=== PATIENT | male | born 1950 | race Caucasian/White ===

== ENCOUNTER 2018-11-23 14:27 | Inpatient (IN) | payer MEDICARE, MEDICAID ==
[2018-11-23 14:55] LABS: WHITE BLOOD COUNT 26.2 10^3/ul (4.8-10.8)
[2018-11-23 14:55] LABS: ABNORMAL IP MESSAGE 1; HEMATOCRIT 29.8 % (42.0-52.0); HEMOGLOBIN 8.5 g/dl (14.0-18.0); MEAN CORPUSCULAR HEMOGLOBIN 23.9 pg (29.0-33.0); MEAN CORPUSCULAR HGB CONC 28.5 g/dl (32.0-37.0); MEAN CORPUSCULAR VOLUME 83.9 fl (82.0-101.0); MEAN PLATELET VOLUME 9.4 fl (7.4-10.4); PLATELET COUNT 405 10^3/UL (140-415); POSITIVE DIFF @See below; RED BLOOD COUNT 3.55 10^6/ul (4.70-6.10); RED CELL DISTRIBUTION WIDTH 14.4 % (11.5-14.5)
[2018-11-23 14:58] LABS: ADD MAN DIFF? YES; PATH REVIEW? YES-PATH TO CONFIRM
[2018-11-23] MEDS: CEFEPIME 2GM/50 ML (PMX) 50 ML IVPB (15:10)
[2018-11-23] MEDS: SODIUM CHLORIDE 0.9% 1L BAG IV* (15:10)
[2018-11-23 15:16] LABS: ANION GAP 5 (5-13); BLOOD UREA NITROGEN 56 mg/dl (7-20); CALCIUM 9.4 mg/dl (8.4-10.2); CARBON DIOXIDE 27 mmol/L (21-31); CHLORIDE 109 mmol/L (97-110); CREATININE 1.77 mg/dl (0.61-1.24); Estimated GFR 38 mL/min (>60); GLUCOSE 347 mg/dl (70-220); POTASSIUM 5.2 mmol/L (3.5-5.1); SODIUM 141 mmol/L (135-144)
[2018-11-23 15:27] LABS: TROPONIN-I 0.056 ng/ml (0.000-0.120)
[2018-11-23] MEDS: VANCOMYCIN 1 GM (PMX) 250 ML IVPB (15:43)
[2018-11-23 16:21] LABS: ANISOCYTOSIS 1+ (0-0); EOSINOPHILS % (M) 1 % (0-7); LYMPHOCYTES #M 1.3 10^3/ul (0.8-2.9); LYMPHOCYTES % (M) 5 % (15-51); MICROCYTOSIS 1+ (0-0); MONOCYTES % (M) 4 % (0-11); POIKILOCYTOSIS 1+ (0-0); POLYCHROMASIA 1+ (0-0); SEGMENTED NEUTROPHILS (M) % 90 % (39-77); SMUDGE%M 3 % (0-0)
[2018-11-23] MEDS ORDERED: ONDANSETRON 4 MG INJ IV (17:00)
[2018-11-23] MEDS ORDERED: VANCOMYCIN IV PER PHARMACY XX (18:00)
[2018-11-23] MEDS: CHLORHEXIDINE GLUCONATE 15 ML UD CUP MM (18:30)
[2018-11-23 19:57] LABS: LACTIC ACID 2.2 mmol/L (0.5-2.0)
[2018-11-23] MEDS: RIVAROXABAN 15 MG TABLET PO (20:02)
[2018-11-23] MEDS: VANCOMYCIN 1 GM in 250 ML IVPB (21:25)
[2018-11-23 21:49] LABS: LACTIC ACID 1.5 mmol/L (0.5-2.0)
[2018-11-23] MEDS: SUCRALFATE 1 GM TAB PO (23:00)
[2018-11-23] MEDS: PIPER-TAZO 3.375 GM IV (PMX) 100 ML IVPB (23:00)
[2018-11-24] MEDS ORDERED: GLUCAGON 1 MG INJ IM (04:00)
[2018-11-24] MEDS ORDERED: DEXTROSE 50% 50 ML SYRINGE IV ×2 (04:00)
[2018-11-24] MEDS ORDERED: GLUCOSE GEL 15 GRAM TUBE BUCCAL (04:00)
[2018-11-24] MEDS ORDERED: GLUCOSE GEL 15 GRAM TUBE PO ×2 (04:00)
[2018-11-24] MEDS: CHLORHEXIDINE GLUCONATE 15 ML UD CUP MM ×2 (06:05→18:48)
[2018-11-24] MEDS: PIPER-TAZO 3.375 GM IV (PMX) 100 ML IVPB ×3 (06:05→21:11)
[2018-11-24] MEDS: ACETAMINOPHEN 325 MG TAB PO (06:06)
[2018-11-24] MEDS: PANTOPRAZOLE (EC) 40 MG TAB PO (06:43)
[2018-11-24] MEDS: SUCRALFATE 1 GM TAB PO ×4 (06:43→21:00)
[2018-11-24] MEDS: morphine 2 MG INJ IV (06:43)
[2018-11-24] MEDS: INSULIN ASPART [NOVOLOG] 3 ML PEN SC ×4 (07:55→21:06)
[2018-11-24 08:42] LABS: ADD MAN DIFF? NO
[2018-11-24 08:46] LABS: BASOPHIL # 0.1 10^3/ul (0.0-0.1); BASOPHILS % 0.2 % (0.0-2.0); EOSINOPHILS # 0.2 10^3/ul (0.0-0.5); EOSINOPHILS % 1.1 % (0.0-7.0); MEAN CORPUSCULAR HEMOGLOBIN 24.3 pg (29.0-33.0); MEAN CORPUSCULAR HGB CONC 29.2 g/dl (32.0-37.0); MEAN CORPUSCULAR VOLUME 83.3 fl (82.0-101.0); MEAN PLATELET VOLUME 9.6 fl (7.4-10.4); MONOCYTE # 1.2 10^3/ul (0.3-0.9); NEUTROPHIL # 17.2 10^3/ul (1.6-7.5); NEUTROPHILS % 86.2 % (39.0-77.0); PLATELET COUNT 302 10^3/UL (140-415); RED BLOOD COUNT 2.88 10^6/ul (4.70-6.10); RED CELL DISTRIBUTION WIDTH 14.4 % (11.5-14.5)
[2018-11-24] MEDS: POLYETHYLENE GLYCOL 17 GM PACKET PO (09:00)
[2018-11-24] MEDS: ASCORBIC ACID 500 MG TAB PO (09:00)
[2018-11-24 09:32] LABS: ANION GAP 3 (5-13); BLOOD UREA NITROGEN 47 mg/dl (7-20); CALCIUM 8.5 mg/dl (8.4-10.2); CARBON DIOXIDE 24 mmol/L (21-31); CHLORIDE 112 mmol/L (97-110); CREATININE 1.85 mg/dl (0.61-1.24); Estimated GFR 36 mL/min (>60); GLUCOSE 81 mg/dl (70-220); POTASSIUM 4.2 mmol/L (3.5-5.1); SODIUM 139 mmol/L (135-144)
[2018-11-24] MEDS: DIGOXIN 0.25 MG TAB PO (12:49)
[2018-11-24 14:20] LABS: INR 1.35; PROTIME 16.8 Sec (11.9-14.9); PT RATIO 1.3
[2018-11-24 14:21] LABS: PARTIAL THROMBOPLASTIN TIME 31.5 Sec (23.0-35.0)
[2018-11-24 14:25] LABS: THROMBIN TIME 17.8 SEC (13.8-19.1)
[2018-11-24 14:30] LABS: PLATELET COUNT 302 10^3/UL (140-415)
[2018-11-24] MEDS: LORAZEPAM 2 MG INJ IV (15:23)
[2018-11-24] MEDS: VANCOMYCIN 1 GM 250 ML IVPB (21:52)
[2018-11-25] MEDS ORDERED: ACCU-CHEK XX (02:00)
[2018-11-25] MEDS: CHLORHEXIDINE GLUCONATE 15 ML UD CUP MM ×2 (05:29→18:31)
[2018-11-25] MEDS: PIPER-TAZO 3.375 GM IV (PMX) 100 ML IVPB ×3 (05:29→22:04)
[2018-11-25] MEDS: SUCRALFATE 1 GM TAB PO ×4 (06:24→21:39)
[2018-11-25] MEDS: PANTOPRAZOLE (EC) 40 MG TAB PO (06:24)
[2018-11-25 06:48] LABS: ADD MAN DIFF? NO
[2018-11-25 06:52] LABS: WHITE BLOOD COUNT 21.2 10^3/ul (4.8-10.8)
[2018-11-25 06:52] LABS: BASOPHIL # 0.1 10^3/ul (0.0-0.1); BASOPHILS % 0.3 % (0.0-2.0); EOSINOPHILS # 0.4 10^3/ul (0.0-0.5); EOSINOPHILS % 1.7 % (0.0-7.0); HEMATOCRIT 24.3 % (42.0-52.0); HEMOGLOBIN 7.1 g/dl (14.0-18.0); LYMPHOCYTES # 1.1 10^3/ul (0.8-2.9); MEAN CORPUSCULAR HEMOGLOBIN 24.1 pg (29.0-33.0); MEAN CORPUSCULAR HGB CONC 29.2 g/dl (32.0-37.0); MEAN CORPUSCULAR VOLUME 82.4 fl (82.0-101.0); MEAN PLATELET VOLUME 9.5 fl (7.4-10.4); MONOCYTE # 1.4 10^3/ul (0.3-0.9); MONOCYTES % 6.7 % (0.0-11.0); NEUTROPHIL # 18.1 10^3/ul (1.6-7.5); NEUTROPHILS % 85.1 % (39.0-77.0); PLATELET COUNT 298 10^3/UL (140-415); RED BLOOD COUNT 2.95 10^6/ul (4.70-6.10); RED CELL DISTRIBUTION WIDTH 14.5 % (11.5-14.5)
[2018-11-25 07:17] LABS: ANION GAP 5 (5-13); BLOOD UREA NITROGEN 45 mg/dl (7-20); CALCIUM 8.6 mg/dl (8.4-10.2); CARBON DIOXIDE 25 mmol/L (21-31); CHLORIDE 106 mmol/L (97-110); CREATININE 2.13 mg/dl (0.61-1.24); Estimated GFR 31 mL/min (>60); GLUCOSE 159 mg/dl (70-220); POTASSIUM 4.3 mmol/L (3.5-5.1); SODIUM 136 mmol/L (135-144)
[2018-11-25 07:23] LABS: TOTAL IRON BINDING CAPACITY 182 ug/dl (241-421)
[2018-11-25 07:24] LABS: IRON < 10 ug/dl (35-150)
[2018-11-25] MEDS: INSULIN ASPART [NOVOLOG] 3 ML PEN SC ×5 (07:55→22:05)
[2018-11-25] MEDS: ASCORBIC ACID 500 MG TAB PO (09:00)
[2018-11-25] MEDS: POLYETHYLENE GLYCOL 17 GM PACKET PO (09:00)
[2018-11-25] MEDS: morphine 2 MG INJ IV (11:10)
[2018-11-25] MEDS: PROPOFOL 200 MG INJ IV ×2 (13:29→14:15)
[2018-11-25] MEDS ORDERED: VANCOMYCIN IV PER PHARMACY XX (14:00)
[2018-11-25] MEDS: DIGOXIN 0.25 MG TAB PO (14:39)
[2018-11-25 21:36] LABS: VANCOMYCIN,TROUGH 13.4 ug/ml (10.0-20.0)
[2018-11-25] MEDS: VANCOMYCIN 1 GM 250 ML IVPB (21:58)
[2018-11-26] MEDS: LORAZEPAM 1 MG TAB PO ×2 (00:28→22:57)
[2018-11-26] MEDS: CHLORHEXIDINE GLUCONATE 15 ML UD CUP MM ×2 (06:05→18:05)
[2018-11-26] MEDS: PIPER-TAZO 3.375 GM IV (PMX) 100 ML IVPB ×3 (06:06→21:10)
[2018-11-26] MEDS: SUCRALFATE 1 GM TAB PO ×4 (07:25→20:24)
[2018-11-26] MEDS: PANTOPRAZOLE (EC) 40 MG TAB PO (07:25)
[2018-11-26] MEDS: INSULIN ASPART [NOVOLOG] 3 ML PEN SC ×7 (08:34→20:41)
[2018-11-26] MEDS: POLYETHYLENE GLYCOL 17 GM PACKET PO (09:00)
[2018-11-26] MEDS: ASCORBIC ACID 500 MG TAB PO (09:00)
[2018-11-26 09:09] LABS: ANION GAP 4 (5-13); BLOOD UREA NITROGEN 45 mg/dl (7-20); CALCIUM 8.4 mg/dl (8.4-10.2); CARBON DIOXIDE 24 mmol/L (21-31); CHLORIDE 108 mmol/L (97-110); CREATININE 2.35 mg/dl (0.61-1.24); Estimated GFR 28 mL/min (>60); GLUCOSE 210 mg/dl (70-220); POTASSIUM 4.4 mmol/L (3.5-5.1); SODIUM 136 mmol/L (135-144)
[2018-11-26 09:16] LABS: IRON 12 ug/dl (35-150)
[2018-11-26 09:25] LABS: % IRON SATURATION 7 % SAT (22-52); TOTAL IRON BINDING CAPACITY 170 ug/dl (241-421)
[2018-11-26] MEDS: DIGOXIN 0.25 MG TAB PO (12:28)
[2018-11-26] MEDS: ACETYLCYSTEINE 20% 4 ML VIAL NEB ×3 (16:00→21:05)
[2018-11-26] MEDS: ALBUTEROL/IPRATROPIUM (NEB) 3 ML AMP HHN ×2 (17:24→21:05)
[2018-11-26] MEDS: INSULIN GLARGINE [LANTus] (100 UNITS/ML) SYG SC (20:37)
[2018-11-27] MEDS: ALBUTEROL 0.083% (NEB) 2.5 MG/3 ML AMP NEB ×2 (01:08→05:07)
[2018-11-27] MEDS: ACETYLCYSTEINE 20% 4 ML VIAL NEB ×6 (01:08→21:05)
[2018-11-27] MEDS: INSULIN ASPART [NOVOLOG] 3 ML PEN SC ×8 (01:31→20:37)
[2018-11-27] MEDS: SUCRALFATE 1 GM TAB PO ×4 (06:32→20:21)
[2018-11-27] MEDS: PANTOPRAZOLE (EC) 40 MG TAB PO (06:32)
[2018-11-27] MEDS: CHLORHEXIDINE GLUCONATE 15 ML UD CUP MM ×2 (06:32→18:06)
[2018-11-27] MEDS: PIPER-TAZO 3.375 GM IV (PMX) 100 ML IVPB ×3 (06:33→21:03)
[2018-11-27 07:37] LABS: BLOOD UREA NITROGEN 43 mg/dl (7-20)
[2018-11-27 07:37] LABS: CREATININE 2.19 mg/dl (0.61-1.24)
[2018-11-27 07:40] LABS: VANCOMYCIN,RANDOM 13.5 ug/ml
[2018-11-27] MEDS: ALBUTEROL/IPRATROPIUM (NEB) 3 ML AMP HHN ×4 (08:11→21:05)
[2018-11-27] MEDS: ASCORBIC ACID 500 MG TAB PO (08:37)
[2018-11-27] MEDS: POLYETHYLENE GLYCOL 17 GM PACKET PO (08:38)
[2018-11-27] MEDS: VANCOMYCIN 1 GM 250 ML IVPB (12:09)
[2018-11-27] MEDS: DIGOXIN 0.25 MG TAB PO (14:58)
[2018-11-27] MEDS: INSULIN GLARGINE [LANTus] (100 UNITS/ML) SYG SC (20:37)
[2018-11-27] MEDS: ACETAMINOPHEN 325 MG TAB PO (21:03)
[2018-11-27] MEDS: LORAZEPAM 1 MG TAB PO (23:17)
[2018-11-28] MEDS: ALBUTEROL 0.083% (NEB) 2.5 MG/3 ML AMP NEB ×2 (01:30→05:25)
[2018-11-28] MEDS: ACETYLCYSTEINE 20% 4 ML VIAL NEB ×6 (01:30→19:48)
[2018-11-28 04:43] LABS: OCCULT BLOOD STOOL NEGATIVE (NEGATIVE)
[2018-11-28 06:09] LABS: ADD MAN DIFF? NO
[2018-11-28 06:15] LABS: ABNORMAL IP MESSAGE 1; BASOPHIL # 0.1 10^3/ul (0.0-0.1); BASOPHILS % 0.3 % (0.0-2.0); EOSINOPHILS # 0.4 10^3/ul (0.0-0.5); HEMATOCRIT 24.7 % (42.0-52.0); HEMOGLOBIN 7.4 g/dl (14.0-18.0); LYMPHOCYTES # 1.5 10^3/ul (0.8-2.9); LYMPHOCYTES % 7.7 % (15.0-51.0); MEAN CORPUSCULAR HEMOGLOBIN 23.8 pg (29.0-33.0); MEAN CORPUSCULAR VOLUME 79.4 fl (82.0-101.0); MEAN PLATELET VOLUME 9.7 fl (7.4-10.4); MONOCYTE # 1.6 10^3/ul (0.3-0.9); MONOCYTES % 8.6 % (0.0-11.0); NEUTROPHIL # 15.3 10^3/ul (1.6-7.5); NEUTROPHILS % 80.1 % (39.0-77.0); PLATELET COUNT 276 10^3/UL (140-415); POSITIVE DIFF @See below; RED BLOOD COUNT 3.11 10^6/ul (4.70-6.10); RED CELL DISTRIBUTION WIDTH 14.6 % (11.5-14.5)
[2018-11-28 06:15] LABS: WHITE BLOOD COUNT 19.1 10^3/ul (4.8-10.8)
[2018-11-28] MEDS: PIPER-TAZO 3.375 GM IV (PMX) 100 ML IVPB ×3 (06:20→21:49)
[2018-11-28] MEDS: CHLORHEXIDINE GLUCONATE 15 ML UD CUP MM ×2 (06:20→17:53)
[2018-11-28] MEDS: SUCRALFATE 1 GM TAB PO ×4 (06:20→20:51)
[2018-11-28] MEDS: PANTOPRAZOLE (EC) 40 MG TAB PO (06:20)
[2018-11-28 07:00] LABS: ANION GAP 6 (5-13); BLOOD UREA NITROGEN 40 mg/dl (7-20); CALCIUM 8.6 mg/dl (8.4-10.2); CARBON DIOXIDE 22 mmol/L (21-31); CHLORIDE 108 mmol/L (97-110); CREATININE 2.25 mg/dl (0.61-1.24); Estimated GFR 29 mL/min (>60); GLUCOSE 178 mg/dl (70-220); POTASSIUM 4.6 mmol/L (3.5-5.1); SODIUM 136 mmol/L (135-144)
[2018-11-28] MEDS: INSULIN ASPART [NOVOLOG] 3 ML PEN SC ×7 (08:04→21:10)
[2018-11-28] MEDS: ASCORBIC ACID 500 MG TAB PO (08:48)
[2018-11-28] MEDS: POLYETHYLENE GLYCOL 17 GM PACKET PO (08:48)
[2018-11-28] MEDS: ALBUTEROL/IPRATROPIUM (NEB) 3 ML AMP HHN ×4 (09:51→19:48)
[2018-11-28] MEDS: DIGOXIN 0.25 MG TAB PO (13:15)
[2018-11-28] MEDS: INSULIN GLARGINE [LANTus] (100 UNITS/ML) SYG SC (21:11)
[2018-11-29] MEDS: ACETYLCYSTEINE 20% 4 ML VIAL NEB ×6 (01:03→20:00)
[2018-11-29] MEDS: VANCOMYCIN 1 GM 250 ML IVPB (02:01)
[2018-11-29] MEDS: PIPER-TAZO 3.375 GM IV (PMX) 100 ML IVPB ×3 (06:00→22:50)
[2018-11-29] MEDS: CHLORHEXIDINE GLUCONATE 15 ML UD CUP MM ×2 (06:00→18:21)
[2018-11-29 06:55] LABS: ADD MAN DIFF? NO
[2018-11-29 07:03] LABS: ABNORMAL IP MESSAGE 1; BASOPHIL # 0.1 10^3/ul (0.0-0.1); BASOPHILS % 0.3 % (0.0-2.0); EOSINOPHILS # 0.3 10^3/ul (0.0-0.5); EOSINOPHILS % 1.3 % (0.0-7.0); HEMATOCRIT 23.9 % (42.0-52.0); LYMPHOCYTES % 4.9 % (15.0-51.0); MEAN CORPUSCULAR HEMOGLOBIN 23.7 pg (29.0-33.0); MEAN CORPUSCULAR HGB CONC 29.3 g/dl (32.0-37.0); MEAN PLATELET VOLUME 9.3 fl (7.4-10.4); MONOCYTE # 1.6 10^3/ul (0.3-0.9); MONOCYTES % 8.1 % (0.0-11.0); NEUTROPHIL # 16.1 10^3/ul (1.6-7.5); NEUTROPHILS % 83.6 % (39.0-77.0); PLATELET COUNT 280 10^3/UL (140-415); POSITIVE DIFF @See below; RED BLOOD COUNT 2.95 10^6/ul (4.70-6.10); RED CELL DISTRIBUTION WIDTH 14.4 % (11.5-14.5)
[2018-11-29 07:03] LABS: WHITE BLOOD COUNT 19.3 10^3/ul (4.8-10.8)
[2018-11-29 07:46] LABS: ANION GAP 5 (5-13); BLOOD UREA NITROGEN 34 mg/dl (7-20); CALCIUM 8.6 mg/dl (8.4-10.2); CARBON DIOXIDE 22 mmol/L (21-31); CHLORIDE 110 mmol/L (97-110); CREATININE 2.18 mg/dl (0.61-1.24); Estimated GFR 30 mL/min (>60); GLUCOSE 213 mg/dl (70-220); POTASSIUM 4.3 mmol/L (3.5-5.1); SODIUM 137 mmol/L (135-144)
[2018-11-29] MEDS: PANTOPRAZOLE (EC) 40 MG TAB PO (07:49)
[2018-11-29] MEDS: SUCRALFATE 1 GM TAB PO ×4 (07:49→22:40)
[2018-11-29] MEDS: INSULIN ASPART [NOVOLOG] 3 ML PEN SC ×7 (08:05→22:47)
[2018-11-29] MEDS: ALBUTEROL/IPRATROPIUM (NEB) 3 ML AMP HHN ×4 (08:56→20:00)
[2018-11-29] MEDS: POLYETHYLENE GLYCOL 17 GM PACKET PO (09:23)
[2018-11-29] MEDS: ASCORBIC ACID 500 MG TAB PO (09:23)
[2018-11-29] MEDS: DIGOXIN 0.25 MG TAB PO (13:24)
[2018-11-29 16:13] LABS: FLD PMN% 77.4 %; FLD RBC 54000 /uL; FLD WBC 37248 /cmm
[2018-11-29 17:13] LABS: FLUID LD 28007 U/L; FLUID TOTAL PROTEIN 3.1 g/dl
[2018-11-29 17:28] LABS: FLD MN% 22.6 %
[2018-11-29 17:30] LABS: FLD CLARITY CLOUDY; FLD COLOR YELLOW; FLD VOLUME 3.6 ml
[2018-11-29 17:30] LABS: FLD TYPE THORACENTESIS
[2018-11-29 17:58] LABS: FLUID TYPE THORACENTESIS FLUID
[2018-11-29] MEDS: INSULIN GLARGINE [LANTus] (100 UNITS/ML) SYG SC (22:48)
[2018-11-30] MEDS: ALBUTEROL 0.083% (NEB) 2.5 MG/3 ML AMP NEB ×2 (01:52→05:20)
[2018-11-30] MEDS: ACETYLCYSTEINE 20% 4 ML VIAL NEB ×6 (01:52→20:13)
[2018-11-30] MEDS: PIPER-TAZO 3.375 GM IV (PMX) 100 ML IVPB ×3 (06:12→20:08)
[2018-11-30] MEDS: CHLORHEXIDINE GLUCONATE 15 ML UD CUP MM ×2 (06:12→18:24)
[2018-11-30] MEDS: SUCRALFATE 1 GM TAB PO ×4 (07:25→20:08)
[2018-11-30] MEDS: PANTOPRAZOLE (EC) 40 MG TAB PO (07:25)
[2018-11-30] MEDS: INSULIN ASPART [NOVOLOG] 3 ML PEN SC ×7 (07:36→20:08)
[2018-11-30] MEDS: ALBUTEROL/IPRATROPIUM (NEB) 3 ML AMP HHN ×4 (08:18→20:12)
[2018-11-30 08:19] LABS: AADO2 Arterial 153.7 mmHg (7.0-24.0); Allen Test ACCEPTAB; Arterial Base Excess -0.8 mmol/L (-3.0-3); Arterial Blood Gas Oxygen Sat 96.6 mmHG (95.0-98.0); Arterial COHb 0.2 % (0.0-3.0); Arterial Fraction of Oxyhgb 96.1 % (93.0-99.0); Arterial HCO3 24.1 mmol/L (22.0-26.0); Arterial MetHb 0.3 % (0.0-1.5); MODE VENT - AC; Site Right Radial
[2018-11-30] MEDS: POLYETHYLENE GLYCOL 17 GM PACKET PO (09:00)
[2018-11-30] MEDS: ASCORBIC ACID 500 MG TAB PO (09:00)
[2018-11-30] MEDS: PROPOFOL 200 MG INJ IV (11:00)
[2018-11-30] MEDS ORDERED: PROPOFOL 100 ML IV ×2 (11:00)
[2018-11-30] MEDS: VANCOMYCIN 1 GM 250 ML IVPB (13:34)
[2018-11-30] MEDS: DIGOXIN 0.25 MG TAB PO (13:38)
[2018-11-30] MEDS: INSULIN GLARGINE [LANTus] (100 UNITS/ML) SYG SC (20:09)
[2018-12-01] MEDS: ACETYLCYSTEINE 20% 4 ML VIAL NEB ×2 (01:17→05:05)
[2018-12-01] MEDS: ALBUTEROL/IPRATROPIUM (NEB) 3 ML AMP HHN ×6 (01:18→21:59)
[2018-12-01] MEDS: PIPER-TAZO 3.375 GM IV (PMX) 100 ML IVPB ×3 (05:38→21:21)
[2018-12-01] MEDS: CHLORHEXIDINE GLUCONATE 15 ML UD CUP MM ×2 (05:38→17:56)
[2018-12-01] MEDS: LORAZEPAM 1 MG TAB PO (05:38)
[2018-12-01] MEDS: INSULIN ASPART [NOVOLOG] 3 ML PEN SC ×7 (07:55→20:15)
[2018-12-01] MEDS: POLYETHYLENE GLYCOL 17 GM PACKET PO (08:12)
[2018-12-01] MEDS: ASCORBIC ACID 500 MG TAB PO (08:13)
[2018-12-01] MEDS: SUCRALFATE 1 GM TAB PO ×4 (08:13→20:15)
[2018-12-01] MEDS: PANTOPRAZOLE (EC) 40 MG TAB PO (08:13)
[2018-12-01 09:33] LABS: BLOOD UREA NITROGEN 31 mg/dl (7-20)
[2018-12-01 09:33] LABS: CREATININE 2.23 mg/dl (0.61-1.24)
[2018-12-01] MEDS: ACETAMINOPHEN 325 MG TAB PO ×3 (09:41→22:16)
[2018-12-01] MEDS: DIGOXIN 0.25 MG TAB PO (12:17)
[2018-12-01] MEDS: INSULIN GLARGINE [LANTus] (100 UNITS/ML) SYG SC (20:55)
[2018-12-02] MEDS: VANCOMYCIN 1 GM 250 ML IVPB (01:23)
[2018-12-02] MEDS: PIPER-TAZO 3.375 GM IV (PMX) 100 ML IVPB ×3 (06:05→22:26)
[2018-12-02] MEDS: CHLORHEXIDINE GLUCONATE 15 ML UD CUP MM ×2 (06:06→18:09)
[2018-12-02] MEDS: SUCRALFATE 1 GM TAB PO ×4 (07:49→20:28)
[2018-12-02] MEDS: ACETAMINOPHEN 325 MG TAB PO ×2 (07:49→12:10)
[2018-12-02] MEDS: PANTOPRAZOLE (EC) 40 MG TAB PO (07:49)
[2018-12-02] MEDS: INSULIN ASPART [NOVOLOG] 3 ML PEN SC ×7 (07:49→20:28)
[2018-12-02] MEDS: ASCORBIC ACID 500 MG TAB PO (08:08)
[2018-12-02] MEDS: POLYETHYLENE GLYCOL 17 GM PACKET PO (08:08)
[2018-12-02] MEDS: ALBUTEROL/IPRATROPIUM (NEB) 3 ML AMP HHN ×4 (08:54→21:08)
[2018-12-02] MEDS: DIGOXIN 0.25 MG TAB PO (12:10)
[2018-12-02] MEDS: INSULIN GLARGINE [LANTus] (100 UNITS/ML) SYG SC (20:30)
== END 2018-12-03 00:08 | DRG 207 ==
LOC: TEL 16:47 → E/R 14:27
PROVIDERS: Internal Medicine
PROC: 5A1955Z Respiratory Ventilation, Greater than 96 Consecutive Hours (ICD-10-PCS; 2018-11-23)
PROC: 0BC38ZZ Extirpation of Matter from Right Main Bronchus, Via Natural or Artificial Opening Endoscopic (ICD-10-PCS; principal; 2018-11-25)
PROC: 0W993ZZ Drainage of Right Pleural Cavity, Percutaneous Approach (ICD-10-PCS; 2018-11-29)
PROC: 0BJ08ZZ Inspection of Tracheobronchial Tree, Via Natural or Artificial Opening Endoscopic (ICD-10-PCS; 2018-11-30)
DX: T17.590A Other foreign object in bronchus causing asphyxiation, initial encounter (principal); J18.9 Pneumonia, unspecified organism; I13.0 Hypertensive heart and chronic kidney disease with heart failure and stage 1 through stage 4 chronic kidney disease, or unspecified chronic kidney disease; I50.32 Chronic diastolic (congestive) heart failure; I42.7 Cardiomyopathy due to drug and external agent; J96.11 Chronic respiratory failure with hypoxia; J98.11 Atelectasis; Z99.11 Dependence on respirator [ventilator] status; D63.1 Anemia in chronic kidney disease; E11.22 Type 2 diabetes mellitus with diabetic chronic kidney disease; E66.01 Morbid (severe) obesity due to excess calories; N18.3 Chronic kidney disease, stage 3 (moderate); I48.91 Unspecified atrial fibrillation; N48.9 Disorder of penis, unspecified; R13.10 Dysphagia, unspecified; X58.XXXA Exposure to other specified factors, initial encounter; Z93.0 Tracheostomy status; Z93.1 Gastrostomy status; Z87.891 Personal history of nicotine dependence; Z79.4 Long term (current) use of insulin; Z79.01 Long term (current) use of anticoagulants; Z68.33 Body mass index [BMI] 33.0-33.9, adult
CPT/HCPCS: 36415; 36600; 71045; 71250; 76604; 76942; 80048; 80202; 82270; 82565; 82728; 82803; 82962; 83540; 83605; 83615; 84157; 84484; 84520; 85025; 85049; 85610; 85670; 85730; 87040-91; 87081; 87400; 88104; 88107; 88305; 89051; 93005; 94002; 94003; 94640; 94667; 94668; 94799; 96374; 96375; 99291-25

== ENCOUNTER 2018-12-08 22:00 | Inpatient (IN) | payer MEDICARE, MEDICAID ==
[2018-12-08] MEDS: SOD CHLORIDE 0.9% 1,000 ML IV
[2018-12-08] MEDS ORDERED: GLUCAGON 1 MG INJ IM (23:45)
[2018-12-08] MEDS ORDERED: GLUCOSE GEL 15 GRAM TUBE BUCCAL (23:45)
[2018-12-08] MEDS ORDERED: GLUCOSE GEL 15 GRAM TUBE PO ×2 (23:45)
[2018-12-08] MEDS ORDERED: DEXTROSE 50% 50 ML SYRINGE IV ×2 (23:45)
[2018-12-09] MEDS ORDERED: LORAZEPAM 1 MG TAB PO
[2018-12-09] MEDS ORDERED: ALBUTEROL 0.083% (NEB) 2.5 MG/3 ML AMP NEB
[2018-12-09] MEDS ORDERED: DOCUSATE SODIUM 100 MG CAP PO
[2018-12-09] MEDS ORDERED: NITROGLYCERIN (SL) 0.4 MG TAB SL
[2018-12-09] MEDS ORDERED: BISACODYL (EC) 5 MG TAB PO
[2018-12-09] MEDS ORDERED: NACL 0.9% 3 ML SYG IV
[2018-12-09] MEDS: INSULIN ASPART [NOVOLOG] 3 ML PEN SC ×7 (01:00→21:00)
[2018-12-09 01:22] LABS: ADD MAN DIFF? NO
[2018-12-09 01:26] LABS: WHITE BLOOD COUNT 18.5 10^3/ul (4.8-10.8)
[2018-12-09 01:26] LABS: ABNORMAL IP MESSAGE 1; BASOPHIL # 0.1 10^3/ul (0.0-0.1); BASOPHILS % 0.4 % (0.0-2.0); EOSINOPHILS # 0.2 10^3/ul (0.0-0.5); EOSINOPHILS % 1.2 % (0.0-7.0); HEMATOCRIT 24.1 % (42.0-52.0); HEMOGLOBIN 7.3 g/dl (14.0-18.0); LYMPHOCYTES % 5.4 % (15.0-51.0); MEAN CORPUSCULAR HEMOGLOBIN 24.6 pg (29.0-33.0); MEAN CORPUSCULAR HGB CONC 30.3 g/dl (32.0-37.0); MEAN CORPUSCULAR VOLUME 81.1 fl (82.0-101.0); MEAN PLATELET VOLUME 9.3 fl (7.4-10.4); MONOCYTE # 1.5 10^3/ul (0.3-0.9); MONOCYTES % 8.3 % (0.0-11.0); NEUTROPHIL # 15.4 10^3/ul (1.6-7.5); NEUTROPHILS % 83.2 % (39.0-77.0); PLATELET COUNT 306 10^3/UL (140-415); POSITIVE DIFF @See below; RED BLOOD COUNT 2.97 10^6/ul (4.70-6.10); RED CELL DISTRIBUTION WIDTH 15.9 % (11.5-14.5)
[2018-12-09 01:44] LABS: ALANINE AMINOTRANSFERASE 10 IU/L (13-69); ALBUMIN 2.3 g/dl (3.3-4.9); ALKALINE PHOSPHATASE 218 IU/L (42-121); ANION GAP 6 (5-13); ASPARTATE AMINO TRANSFERASE 19 IU/L (15-46); BILIRUBIN,INDIRECT 0.1 mg/dl (0-1.1); BILIRUBIN,TOTAL 0.1 mg/dl (0.2-1.3); BLOOD UREA NITROGEN 28 mg/dl (7-20); CALCIUM 8.4 mg/dl (8.4-10.2); CARBON DIOXIDE 24 mmol/L (21-31); CHLORIDE 104 mmol/L (97-110); CREATININE 2.27 mg/dl (0.61-1.24); Estimated GFR 29 mL/min (>60); GLUCOSE 137 mg/dl (70-220); POTASSIUM 4.9 mmol/L (3.5-5.1); SODIUM 134 mmol/L (135-144); TOTAL PROTEIN 6.1 g/dl (6.1-8.1)
[2018-12-09 01:44] LABS: HEMOGLOBIN A1C 8.6 % (0-5.9)
[2018-12-09] MEDS: ACCU-CHEK XX (02:38)
[2018-12-09] MEDS: ONDANSETRON 4 MG INJ IV (03:48)
[2018-12-09] MEDS ORDERED: morphine 2 MG INJ IV (04:30)
[2018-12-09] MEDS: morphine 2 MG INJ IV (04:35)
[2018-12-09] MEDS: SUCRALFATE 1 GM TAB PO ×4 (07:25→22:28)
[2018-12-09 08:28] LABS: ADD MAN DIFF? NO; HAAIG REFLEX REFLEX FILED
[2018-12-09 08:33] LABS: ABNORMAL IP MESSAGE 1; BASOPHIL # 0.1 10^3/ul (0.0-0.1); BASOPHILS % 0.3 % (0.0-2.0); EOSINOPHILS # 0.2 10^3/ul (0.0-0.5); EOSINOPHILS % 1.2 % (0.0-7.0); HEMATOCRIT 25.1 % (42.0-52.0); HEMOGLOBIN 7.6 g/dl (14.0-18.0); LYMPHOCYTES # 1.4 10^3/ul (0.8-2.9); LYMPHOCYTES % 7.4 % (15.0-51.0); MEAN CORPUSCULAR HEMOGLOBIN 24.6 pg (29.0-33.0); MEAN CORPUSCULAR HGB CONC 30.3 g/dl (32.0-37.0); MEAN CORPUSCULAR VOLUME 81.2 fl (82.0-101.0); MEAN PLATELET VOLUME 9.3 fl (7.4-10.4); MONOCYTE # 1.7 10^3/ul (0.3-0.9); MONOCYTES % 8.5 % (0.0-11.0); NEUTROPHIL # 15.9 10^3/ul (1.6-7.5); NEUTROPHILS % 81.3 % (39.0-77.0); PLATELET COUNT 318 10^3/UL (140-415); POSITIVE DIFF @See below; RED BLOOD COUNT 3.09 10^6/ul (4.70-6.10); RED CELL DISTRIBUTION WIDTH 16.2 % (11.5-14.5)
[2018-12-09 08:33] LABS: WHITE BLOOD COUNT 19.5 10^3/ul (4.8-10.8)
[2018-12-09] MEDS: AMLODIPINE 5 MG TAB PO (08:41)
[2018-12-09] MEDS: FUROSEMIDE 40 MG INJ IV (08:42)
[2018-12-09] MEDS: DIGOXIN 0.25 MG TAB PO (08:42)
[2018-12-09] MEDS ORDERED: NON-FORMULARY/PATIENT OWN MED (Cranberry Fruit (Cranberry) 450 MG) PO (09:00)
[2018-12-09] MEDS ORDERED: NON-FORMULARY/PATIENT OWN MED (Multivitamin with Minerals (Multivitamins with Minerals) 1 PO (09:00)
[2018-12-09 09:02] LABS: ALANINE AMINOTRANSFERASE 9 IU/L (13-69); ALBUMIN 2.3 g/dl (3.3-4.9); ALBUMIN/GLOBULIN RATIO 0.58; ALKALINE PHOSPHATASE 233 IU/L (42-121); ANION GAP 5 (5-13); ASPARTATE AMINO TRANSFERASE 19 IU/L (15-46); BLOOD UREA NITROGEN 26 mg/dl (7-20); CALCIUM 8.8 mg/dl (8.4-10.2); CARBON DIOXIDE 24 mmol/L (21-31); CHLORIDE 108 mmol/L (97-110); CREATININE 2.26 mg/dl (0.61-1.24); Estimated GFR 29 mL/min (>60); GLUCOSE 99 mg/dl (70-220); MAGNESIUM 2.1 mg/dl (1.7-2.5); POTASSIUM 4.9 mmol/L (3.5-5.1); SODIUM 137 mmol/L (135-144); TOTAL PROTEIN 6.2 g/dl (6.1-8.1)
[2018-12-09 09:27] LABS: HEPATITIS B SURFACE ANTIGEN NEGATIVE (NEGATIVE)
[2018-12-09 09:43] LABS: HEPATITIS B SURFACE ANTIBODY NEGATIVE (NEGATIVE)
[2018-12-09 09:44] LABS: HEPATITIS B CORE ANTIBODY NEGATIVE (NEGATIVE); HEPATITIS C VIRAL ANTIBODY NEGATIVE (NEGATIVE)
[2018-12-09] MEDS: FERROUS SULFATE (EC) 325 MG TAB PO (11:10)
[2018-12-09] MEDS: PANTOPRAZOLE (EC) 40 MG TAB PO (11:10)
[2018-12-09] MEDS: MULTIVITAMINS/MINERALS TAB PO (11:11)
[2018-12-09] MEDS: ASCORBIC ACID 500 MG TAB PO (11:12)
[2018-12-09] MEDS ORDERED: AMIKACIN IV PER PHARMACY XX (11:30)
[2018-12-09 12:37] LABS: B-TYPE NATRIURETIC PEPTIDE 4150 PG/ML (0-125)
[2018-12-09] MEDS: SOD CHLORIDE 0.9% 1,000 ML IV (13:30)
[2018-12-09] MEDS: CHLORHEXIDINE GLUCONATE 15 ML UD CUP MM ×2 (13:33)
[2018-12-09] MEDS: NYSTATIN 15 GM CR TOP ×2 (13:34→21:00)
[2018-12-09] MEDS: ZYVOX 600 MG TAB PO ×2 (13:37→22:28)
[2018-12-09] MEDS: FLUCONAZOLE 100 MG TAB PO (13:37)
[2018-12-09] MEDS: ACETYLCYSTEINE 20% 4 ML VIAL NEB (14:00)
[2018-12-09 17:49] LABS: ADD UMIC YES; UR ASCORBIC ACID NEGATIVE (NEGATIVE); UR BILIRUBIN (Dip) NEGATIVE (NEGATIVE); UR BLOOD (Dip) 1+ mg/dL (NEGATIVE); UR CLARITY CLEAR (CLEAR); UR COLOR YELLOW (YELLOW); UR GLUCOSE (Dip) 1+ mg/dL (NEGATIVE); UR KETONES (Dip) NEGATIVE (NEGATIVE); UR LEUKOCYTE ESTERASE (Dip) NEGATIVE Leu/ul (NEGATIVE); UR NITRITE (Dip) NEGATIVE (NEGATIVE); UR RBC 1 /HPF (0-5); UR SPECIFIC GRAVITY (Dip) 1.009 (1.003-1.030); UR SQUAMOUS EPITHELIAL CELL FEW /HPF (FEW); UR TOTAL PROTEIN (Dip) 2+ mg/dl (NEGATIVE); UR UROBILINOGEN (Dip) NEGATIVE (NEGATIVE); UR WBC 5 /HPF (0-5)
[2018-12-09 18:01] LABS: SODIUM,URINE RANDOM 93 mmol/L (30-90)
[2018-12-09 18:12] LABS: CREATININE,URINE RANDOM 31.82 mg/dl (20-370)
[2018-12-09] MEDS: AMIKACIN 400 MG in SOD CHLORIDE 0.9% 100 ML IVPB (19:58)
[2018-12-09] MEDS: INSULIN GLARGINE [LANTus] (100 UNITS/ML) SYG SC (22:37)
[2018-12-09] MEDS: HEPARIN 5,000 UNIT/1 ML VIAL SC (22:47)
[2018-12-10] MEDS: ALBUTEROL 0.083% (NEB) 2.5 MG/3 ML AMP NEB (00:36)
[2018-12-10] MEDS: ACETYLCYSTEINE 20% 4 ML VIAL NEB ×3 (00:36→16:44)
[2018-12-10] MEDS: ACCU-CHEK XX ×2 (01:59)
[2018-12-10] MEDS: ACETAMINOPHEN 325 MG TAB PO (03:49)
[2018-12-10] MEDS: morphine 2 MG INJ IV (03:49)
[2018-12-10] MEDS: HEPARIN 5,000 UNIT/1 ML VIAL SC (05:55)
[2018-12-10] MEDS: INSULIN ASPART [NOVOLOG] 3 ML PEN SC ×7 (07:25→20:56)
[2018-12-10 08:17] LABS: ADD MAN DIFF? NO
[2018-12-10 08:24] LABS: ABNORMAL IP MESSAGE 1; BASOPHIL # 0.1 10^3/ul (0.0-0.1); BASOPHILS % 0.3 % (0.0-2.0); EOSINOPHILS # 0.3 10^3/ul (0.0-0.5); EOSINOPHILS % 1.7 % (0.0-7.0); HEMATOCRIT 22.9 % (42.0-52.0); LYMPHOCYTES # 1.5 10^3/ul (0.8-2.9); LYMPHOCYTES % 9.6 % (15.0-51.0); MEAN CORPUSCULAR HEMOGLOBIN 24.6 pg (29.0-33.0); MEAN CORPUSCULAR HGB CONC 30.1 g/dl (32.0-37.0); MEAN CORPUSCULAR VOLUME 81.5 fl (82.0-101.0); MEAN PLATELET VOLUME 9.2 fl (7.4-10.4); MONOCYTE # 1.5 10^3/ul (0.3-0.9); MONOCYTES % 9.7 % (0.0-11.0); NEUTROPHIL # 12.1 10^3/ul (1.6-7.5); NEUTROPHILS % 77.2 % (39.0-77.0); PLATELET COUNT 259 10^3/UL (140-415); POSITIVE DIFF @See below; RED BLOOD COUNT 2.81 10^6/ul (4.70-6.10); RED CELL DISTRIBUTION WIDTH 16.4 % (11.5-14.5)
[2018-12-10 08:24] LABS: WHITE BLOOD COUNT 15.7 10^3/ul (4.8-10.8)
[2018-12-10 08:29] LABS: HEMOGLOBIN 6.9 g/dl (14.0-18.0)
[2018-12-10] MEDS: PANTOPRAZOLE (EC) 40 MG TAB PO (08:46)
[2018-12-10] MEDS: SUCRALFATE 1 GM TAB PO ×4 (08:46→20:56)
[2018-12-10] MEDS: FERROUS SULFATE (EC) 325 MG TAB PO (08:46)
[2018-12-10] MEDS: FLUCONAZOLE 100 MG TAB PO (08:46)
[2018-12-10] MEDS: DIGOXIN 0.25 MG TAB PO (08:46)
[2018-12-10 08:47] LABS: INR 1.13; PROTIME 14.6 Sec (11.9-14.9); PT RATIO 1.1
[2018-12-10] MEDS: AMLODIPINE 5 MG TAB PO (08:47)
[2018-12-10] MEDS: ZYVOX 600 MG TAB PO ×2 (08:47→20:56)
[2018-12-10] MEDS: LINAGLIPTIN 5 MG TABLET PO (08:47)
[2018-12-10] MEDS: ASCORBIC ACID 500 MG TAB PO (08:47)
[2018-12-10] MEDS: MULTIVITAMINS/MINERALS TAB PO (08:47)
[2018-12-10] MEDS: BALSAM PERU/CASTOR OIL 60 GM TUBE TOP (08:48)
[2018-12-10] MEDS: COLLAGENASE 5 GM (UD JAR) TOP (08:48)
[2018-12-10] MEDS: NYSTATIN 15 GM CR TOP ×2 (08:48→20:57)
[2018-12-10 08:53] LABS: PARTIAL THROMBOPLASTIN TIME 38.8 Sec (23.0-35.0)
[2018-12-10 08:55] LABS: PHOSPHORUS 5.3 mg/dl (2.5-4.9)
[2018-12-10 08:55] LABS: ALANINE AMINOTRANSFERASE 10 IU/L (13-69); ALBUMIN 2.2 g/dl (3.3-4.9); ALBUMIN/GLOBULIN RATIO 0.57; ALKALINE PHOSPHATASE 197 IU/L (42-121); ANION GAP 5 (5-13); ASPARTATE AMINO TRANSFERASE 18 IU/L (15-46); BILIRUBIN,INDIRECT 0.1 mg/dl (0-1.1); BILIRUBIN,TOTAL 0.1 mg/dl (0.2-1.3); BLOOD UREA NITROGEN 29 mg/dl (7-20); CALCIUM 8.4 mg/dl (8.4-10.2); CARBON DIOXIDE 25 mmol/L (21-31); CHLORIDE 105 mmol/L (97-110); CREATININE 2.27 mg/dl (0.61-1.24); Estimated GFR 29 mL/min (>60); GLUCOSE 70 mg/dl (70-220); MAGNESIUM 1.9 mg/dl (1.7-2.5); SODIUM 135 mmol/L (135-144)
[2018-12-10] MEDS: ENOXAPARIN 100 MG/ML SYG SC (10:13)
[2018-12-10] MEDS: CHLORHEXIDINE GLUCONATE 15 ML UD CUP MM ×2 (12:55)
[2018-12-10] MEDS: SOD CHLORIDE 0.9% 250 ML IV* (14:49)
[2018-12-10 15:04] LABS: IMMEDIATE SPIN CROSSMATCH 1 1
[2018-12-10] MEDS: INSULIN GLARGINE [LANTus] (100 UNITS/ML) SYG SC (21:12)
[2018-12-11] MEDS: ALBUTEROL 0.083% (NEB) 2.5 MG/3 ML AMP NEB ×2 (00:20→13:39)
[2018-12-11] MEDS: ACETYLCYSTEINE 20% 4 ML VIAL NEB ×4 (00:21→23:14)
[2018-12-11] MEDS: CHLORHEXIDINE GLUCONATE 15 ML UD CUP MM ×2 (01:26→12:48)
[2018-12-11] MEDS: ACCU-CHEK XX (01:28)
[2018-12-11 07:04] LABS: ADD MAN DIFF? NO
[2018-12-11 07:08] LABS: BASOPHIL # 0.1 10^3/ul (0.0-0.1); BASOPHILS % 0.4 % (0.0-2.0); EOSINOPHILS # 0.1 10^3/ul (0.0-0.5); EOSINOPHILS % 0.9 % (0.0-7.0); HEMATOCRIT 26.6 % (42.0-52.0); HEMOGLOBIN 8.2 g/dl (14.0-18.0); LYMPHOCYTES # 1.1 10^3/ul (0.8-2.9); LYMPHOCYTES % 6.6 % (15.0-51.0); MEAN CORPUSCULAR HGB CONC 30.8 g/dl (32.0-37.0); MEAN CORPUSCULAR VOLUME 81.1 fl (82.0-101.0); MEAN PLATELET VOLUME 8.7 fl (7.4-10.4); MONOCYTE # 1.5 10^3/ul (0.3-0.9); MONOCYTES % 9.2 % (0.0-11.0); NEUTROPHIL # 13.3 10^3/ul (1.6-7.5); NEUTROPHILS % 81.6 % (39.0-77.0); PLATELET COUNT 250 10^3/UL (140-415); RED BLOOD COUNT 3.28 10^6/ul (4.70-6.10); RED CELL DISTRIBUTION WIDTH 16.7 % (11.5-14.5)
[2018-12-11 07:08] LABS: WHITE BLOOD COUNT 16.3 10^3/ul (4.8-10.8)
[2018-12-11] MEDS: INSULIN ASPART [NOVOLOG] 3 ML PEN SC ×7 (07:25→20:29)
[2018-12-11 07:29] LABS: ALANINE AMINOTRANSFERASE 15 IU/L (13-69); ALBUMIN 2.4 g/dl (3.3-4.9); ALBUMIN/GLOBULIN RATIO 0.64; ALKALINE PHOSPHATASE 226 IU/L (42-121); ANION GAP 6 (5-13); ASPARTATE AMINO TRANSFERASE 24 IU/L (15-46); BILIRUBIN,INDIRECT 0.2 mg/dl (0-1.1); BILIRUBIN,TOTAL 0.2 mg/dl (0.2-1.3); BLOOD UREA NITROGEN 30 mg/dl (7-20); CALCIUM 8.4 mg/dl (8.4-10.2); CARBON DIOXIDE 25 mmol/L (21-31); CHLORIDE 105 mmol/L (97-110); CREATININE 2.22 mg/dl (0.61-1.24); Estimated GFR 29 mL/min (>60); GLUCOSE 85 mg/dl (70-220); SODIUM 136 mmol/L (135-144); TOTAL PROTEIN 6.1 g/dl (6.1-8.1)
[2018-12-11] MEDS: AMLODIPINE 5 MG TAB PO (09:03)
[2018-12-11] MEDS: ZYVOX 600 MG TAB PO ×2 (09:03→20:29)
[2018-12-11] MEDS: PANTOPRAZOLE (EC) 40 MG TAB PO (09:03)
[2018-12-11] MEDS: SUCRALFATE 1 GM TAB PO ×4 (09:03→20:29)
[2018-12-11] MEDS: LINAGLIPTIN 5 MG TABLET PO (09:03)
[2018-12-11] MEDS: FLUCONAZOLE 100 MG TAB PO (09:03)
[2018-12-11] MEDS: COLLAGENASE 5 GM (UD JAR) TOP (09:04)
[2018-12-11] MEDS: DIGOXIN 0.25 MG TAB PO (09:04)
[2018-12-11] MEDS: MULTIVITAMINS/MINERALS TAB PO (09:04)
[2018-12-11] MEDS: FERROUS SULFATE (EC) 325 MG TAB PO (09:04)
[2018-12-11] MEDS: ASCORBIC ACID 500 MG TAB PO (09:04)
[2018-12-11] MEDS: NYSTATIN 15 GM CR TOP (09:05)
[2018-12-11] MEDS: ENOXAPARIN 100 MG/ML SYG SC (09:14)
[2018-12-11] MEDS: AMIKACIN 500 MG in SOD CHLORIDE 0.9% 100 ML IVPB (20:29)
[2018-12-11] MEDS: INSULIN GLARGINE [LANTus] (100 UNITS/ML) SYG SC (20:34)
[2018-12-12] MEDS: NYSTATIN 15 GM CR TOP ×3 (00:07→21:04)
[2018-12-12] MEDS: CHLORHEXIDINE GLUCONATE 15 ML UD CUP MM ×2 (00:07→12:00)
[2018-12-12] MEDS: ACCU-CHEK XX (02:00)
[2018-12-12] MEDS: SUCRALFATE 1 GM TAB PO ×4 (04:59→21:05)
[2018-12-12] MEDS: PANTOPRAZOLE (EC) 40 MG TAB PO (05:00)
[2018-12-12] MEDS: INSULIN ASPART [NOVOLOG] 3 ML PEN SC ×7 (07:25→21:00)
[2018-12-12 07:49] LABS: ADD MAN DIFF? NO
[2018-12-12 07:51] LABS: WHITE BLOOD COUNT 13.9 10^3/ul (4.8-10.8)
[2018-12-12 07:51] LABS: BASOPHILS % 0.3 % (0.0-2.0); EOSINOPHILS # 0.2 10^3/ul (0.0-0.5); EOSINOPHILS % 1.1 % (0.0-7.0); HEMOGLOBIN 8.7 g/dl (14.0-18.0); LYMPHOCYTES # 1.2 10^3/ul (0.8-2.9); LYMPHOCYTES % 8.4 % (15.0-51.0); MEAN CORPUSCULAR HEMOGLOBIN 25.5 pg (29.0-33.0); MEAN CORPUSCULAR HGB CONC 31.1 g/dl (32.0-37.0); MEAN CORPUSCULAR VOLUME 82.1 fl (82.0-101.0); MEAN PLATELET VOLUME 8.8 fl (7.4-10.4); MONOCYTE # 1.3 10^3/ul (0.3-0.9); MONOCYTES % 9.1 % (0.0-11.0); NEUTROPHIL # 11.1 10^3/ul (1.6-7.5); NEUTROPHILS % 79.9 % (39.0-77.0); PLATELET COUNT 246 10^3/UL (140-415); RED BLOOD COUNT 3.41 10^6/ul (4.70-6.10); RED CELL DISTRIBUTION WIDTH 17.2 % (11.5-14.5)
[2018-12-12] MEDS: ACETYLCYSTEINE 20% 4 ML VIAL NEB ×2 (08:00→17:43)
[2018-12-12 08:10] LABS: ALANINE AMINOTRANSFERASE 17 IU/L (13-69); ALBUMIN 2.5 g/dl (3.3-4.9); ALBUMIN/GLOBULIN RATIO 0.59; ALKALINE PHOSPHATASE 303 IU/L (42-121); ANION GAP 6 (5-13); ASPARTATE AMINO TRANSFERASE 36 IU/L (15-46); BILIRUBIN,INDIRECT 0.2 mg/dl (0-1.1); BILIRUBIN,TOTAL 0.2 mg/dl (0.2-1.3); BLOOD UREA NITROGEN 28 mg/dl (7-20); CARBON DIOXIDE 24 mmol/L (21-31); CHLORIDE 107 mmol/L (97-110); CREATININE 2.18 mg/dl (0.61-1.24); Estimated GFR 30 mL/min (>60); GLUCOSE 89 mg/dl (70-220); POTASSIUM 4.8 mmol/L (3.5-5.1); SODIUM 137 mmol/L (135-144); TOTAL PROTEIN 6.7 g/dl (6.1-8.1)
[2018-12-12] MEDS: MULTIVITAMINS/MINERALS TAB PO (08:11)
[2018-12-12] MEDS: FERROUS SULFATE (EC) 325 MG TAB PO (08:11)
[2018-12-12] MEDS: DIGOXIN 0.25 MG TAB PO (08:11)
[2018-12-12] MEDS: ZYVOX 600 MG TAB PO ×2 (08:11→21:05)
[2018-12-12] MEDS: AMLODIPINE 5 MG TAB PO (08:11)
[2018-12-12] MEDS: ASCORBIC ACID 500 MG TAB PO (08:11)
[2018-12-12] MEDS: LINAGLIPTIN 5 MG TABLET PO (08:12)
[2018-12-12] MEDS: FLUCONAZOLE 100 MG TAB PO (08:12)
[2018-12-12] MEDS: COLLAGENASE 5 GM (UD JAR) TOP (08:17)
[2018-12-12] MEDS: ENOXAPARIN 100 MG/ML SYG SC (08:21)
[2018-12-12 08:36] LABS: ADD UMIC YES; UR AMORPHOUS CRYSTAL FEW /HPF (NONE SEEN); UR ASCORBIC ACID NEGATIVE (NEGATIVE); UR BILIRUBIN (Dip) NEGATIVE (NEGATIVE); UR BLOOD (Dip) 1+ mg/dL (NEGATIVE); UR CLARITY SLIGHTLY CLOUDY (CLEAR); UR COLOR YELLOW (YELLOW); UR GLUCOSE (Dip) 1+ mg/dL (NEGATIVE); UR KETONES (Dip) NEGATIVE (NEGATIVE); UR LEUKOCYTE ESTERASE (Dip) NEGATIVE Leu/ul (NEGATIVE); UR NITRITE (Dip) NEGATIVE (NEGATIVE); UR RBC 2 /HPF (0-5); UR SPECIFIC GRAVITY (Dip) 1.006 (1.003-1.030); UR SQUAMOUS EPITHELIAL CELL FEW /HPF (FEW); UR TOTAL PROTEIN (Dip) 2+ mg/dl (NEGATIVE); UR UROBILINOGEN (Dip) NEGATIVE (NEGATIVE); UR WBC 2 /HPF (0-5)
[2018-12-12] MEDS: METOPROLOL 25 MG TAB PO ×2 (15:01→21:06)
[2018-12-12] MEDS: EPOETIN ALFA-EPBX (ESRD) 10,000 UNIT/ML VIAL SC (15:03)
[2018-12-12] MEDS: MAGNESIUM SULFATE 1 GM/D5W 100 ML IVPB (15:19)
[2018-12-12 16:31] LABS: CREATININE, RANDOM URINE 34 mg/dL (20-320); MICROALBUMIN 67.9 mg/dL; MICROALBUMIN/CREATININE RATIO 1997 (<30)
[2018-12-12] MEDS: INSULIN GLARGINE [LANTus] (100 UNITS/ML) SYG SC (21:08)
[2018-12-13] MEDS: ACCU-CHEK XX (02:00)
[2018-12-13] MEDS: SUCRALFATE 1 GM TAB PO ×4 (07:25→20:56)
[2018-12-13] MEDS: INSULIN ASPART [NOVOLOG] 3 ML PEN SC ×7 (07:25→21:05)
[2018-12-13] MEDS: PANTOPRAZOLE (EC) 40 MG TAB PO (07:25)
[2018-12-13] MEDS: ACETYLCYSTEINE 20% 4 ML VIAL NEB ×3 (07:50→16:00)
[2018-12-13 08:29] LABS: ADD MAN DIFF? NO
[2018-12-13 08:45] LABS: WHITE BLOOD COUNT 14.3 10^3/ul (4.8-10.8)
[2018-12-13 08:45] LABS: BASOPHIL # 0.1 10^3/ul (0.0-0.1); BASOPHILS % 0.4 % (0.0-2.0); EOSINOPHILS # 0.1 10^3/ul (0.0-0.5); EOSINOPHILS % 0.6 % (0.0-7.0); HEMATOCRIT 26.8 % (42.0-52.0); HEMOGLOBIN 8.5 g/dl (14.0-18.0); LYMPHOCYTES # 1.2 10^3/ul (0.8-2.9); LYMPHOCYTES % 8.5 % (15.0-51.0); MEAN CORPUSCULAR HGB CONC 31.7 g/dl (32.0-37.0); MONOCYTE # 1.3 10^3/ul (0.3-0.9); MONOCYTES % 8.8 % (0.0-11.0); NEUTROPHIL # 11.6 10^3/ul (1.6-7.5); NEUTROPHILS % 80.9 % (39.0-77.0); PLATELET COUNT 213 10^3/UL (140-415); RED BLOOD COUNT 3.27 10^6/ul (4.70-6.10); RED CELL DISTRIBUTION WIDTH 17.7 % (11.5-14.5)
[2018-12-13] MEDS: ASCORBIC ACID 500 MG TAB PO (09:00)
[2018-12-13] MEDS: ZYVOX 600 MG TAB PO ×2 (09:00→20:56)
[2018-12-13] MEDS: METOPROLOL 25 MG TAB PO ×2 (09:00→20:59)
[2018-12-13] MEDS: FLUCONAZOLE 100 MG TAB PO (09:00)
[2018-12-13] MEDS: FERROUS SULFATE (EC) 325 MG TAB PO (09:00)
[2018-12-13] MEDS: DIGOXIN 0.25 MG TAB PO (09:00)
[2018-12-13] MEDS: MULTIVITAMINS/MINERALS TAB PO (09:00)
[2018-12-13] MEDS: AMLODIPINE 5 MG TAB PO (09:00)
[2018-12-13] MEDS: LINAGLIPTIN 5 MG TABLET PO (09:00)
[2018-12-13 09:04] LABS: ANION GAP 5 (5-13); BLOOD UREA NITROGEN 26 mg/dl (7-20); CALCIUM 8.7 mg/dl (8.4-10.2); CARBON DIOXIDE 25 mmol/L (21-31); CHLORIDE 108 mmol/L (97-110); CREATININE 2.06 mg/dl (0.61-1.24); Estimated GFR 32 mL/min (>60); GLUCOSE 108 mg/dl (70-220); MAGNESIUM 2.2 mg/dl (1.7-2.5); PHOSPHORUS 4.9 mg/dl (2.5-4.9); POTASSIUM 4.9 mmol/L (3.5-5.1); SODIUM 138 mmol/L (135-144)
[2018-12-13] MEDS: COLLAGENASE 5 GM (UD JAR) TOP (09:33)
[2018-12-13] MEDS: NYSTATIN 15 GM CR TOP ×2 (09:33→21:07)
[2018-12-13] MEDS: LIDOCAINE 1% (MPF) 5 ML VIAL (10:04)
[2018-12-13] MEDS: LIDOCAINE 1% (MDV) 20 ML INJ (10:04)
[2018-12-13] MEDS ORDERED: hydrALAzine 20 MG INJ IV (10:30)
[2018-12-13] MEDS ORDERED: LABETALOL HCL 20MG INJ IV (10:30)
[2018-12-13] MEDS ORDERED: ROCURONIUM 50 MG INJ (10:33)
[2018-12-13] MEDS ORDERED: PROPOFOL 20 ML (10:57)
[2018-12-13] MEDS ORDERED: MIDAZOLAM 1 MG/ML 2 ML INJ ×2 (10:58)
[2018-12-13] MEDS ORDERED: FENTAnyl 50 MCG/ML VIAL (10:58)
[2018-12-13] MEDS: CHLORHEXIDINE GLUCONATE 15 ML UD CUP MM ×2 (12:00)
[2018-12-13] MEDS: AMIKACIN 500 MG in SOD CHLORIDE 0.9% 100 ML IVPB (20:56)
[2018-12-13] MEDS: INSULIN GLARGINE [LANTus] (100 UNITS/ML) SYG SC (21:14)
[2018-12-14] MEDS: ALBUTEROL 0.083% (NEB) 2.5 MG/3 ML AMP NEB ×3 (00:33→15:37)
[2018-12-14] MEDS: ACETYLCYSTEINE 20% 4 ML VIAL NEB ×4 (00:33→23:11)
[2018-12-14] MEDS: ACCU-CHEK XX (01:53)
[2018-12-14] MEDS: PANTOPRAZOLE (EC) 40 MG TAB PO (05:49)
[2018-12-14] MEDS: SUCRALFATE 1 GM TAB PO ×4 (05:49→21:11)
[2018-12-14] MEDS: INSULIN ASPART [NOVOLOG] 3 ML PEN SC ×8 (07:25→20:50)
[2018-12-14] MEDS: COLLAGENASE 5 GM (UD JAR) TOP (08:22)
[2018-12-14] MEDS: ASCORBIC ACID 500 MG TAB PO (08:23)
[2018-12-14] MEDS: MULTIVITAMINS/MINERALS TAB PO (08:24)
[2018-12-14] MEDS: METOPROLOL 25 MG TAB PO ×2 (08:24→21:12)
[2018-12-14] MEDS: FERROUS SULFATE (EC) 325 MG TAB PO (08:24)
[2018-12-14] MEDS: ZYVOX 600 MG TAB PO ×2 (08:25→21:11)
[2018-12-14] MEDS: DIGOXIN 0.25 MG TAB PO (08:25)
[2018-12-14] MEDS: LINAGLIPTIN 5 MG TABLET PO (08:26)
[2018-12-14] MEDS: FLUCONAZOLE 100 MG TAB PO (08:26)
[2018-12-14] MEDS: AMLODIPINE 5 MG TAB PO (08:27)
[2018-12-14 08:30] LABS: ADD MAN DIFF? NO
[2018-12-14 08:34] LABS: WHITE BLOOD COUNT 8.9 10^3/ul (4.8-10.8)
[2018-12-14 08:34] LABS: BASOPHILS % 0.5 % (0.0-2.0); EOSINOPHILS # 0.1 10^3/ul (0.0-0.5); EOSINOPHILS % 1.6 % (0.0-7.0); HEMATOCRIT 25.5 % (42.0-52.0); HEMOGLOBIN 7.8 g/dl (14.0-18.0); LYMPHOCYTES # 1.1 10^3/ul (0.8-2.9); LYMPHOCYTES % 12.8 % (15.0-51.0); MEAN CORPUSCULAR HEMOGLOBIN 25.3 pg (29.0-33.0); MEAN CORPUSCULAR HGB CONC 30.6 g/dl (32.0-37.0); MEAN CORPUSCULAR VOLUME 82.8 fl (82.0-101.0); MEAN PLATELET VOLUME 9.1 fl (7.4-10.4); MONOCYTES % 11.5 % (0.0-11.0); NEUTROPHIL # 6.4 10^3/ul (1.6-7.5); NEUTROPHILS % 72.5 % (39.0-77.0); PLATELET COUNT 169 10^3/UL (140-415); RED BLOOD COUNT 3.08 10^6/ul (4.70-6.10); RED CELL DISTRIBUTION WIDTH 18.2 % (11.5-14.5)
[2018-12-14 08:58] LABS: PHOSPHORUS 5.2 mg/dl (2.5-4.9)
[2018-12-14 08:58] LABS: MAGNESIUM 2.2 mg/dl (1.7-2.5)
[2018-12-14 09:00] LABS: ANION GAP 6 (5-13); BLOOD UREA NITROGEN 28 mg/dl (7-20); CARBON DIOXIDE 25 mmol/L (21-31); CHLORIDE 108 mmol/L (97-110); CREATININE 1.98 mg/dl (0.61-1.24); Estimated GFR 34 mL/min (>60); GLUCOSE 83 mg/dl (70-220); POTASSIUM 4.4 mmol/L (3.5-5.1); SODIUM 139 mmol/L (135-144)
[2018-12-14] MEDS: FUROSEMIDE 20 MG INJ IV (10:00)
[2018-12-14] MEDS: CHLORHEXIDINE GLUCONATE 15 ML UD CUP MM ×2 (11:47)
[2018-12-14] MEDS ORDERED: ENOXAPARIN 100 MG/ML SYG SC (12:00)
[2018-12-14] MEDS: NYSTATIN 30 GM POWDER BTL TOP ×2 (14:30→21:11)
[2018-12-14] MEDS: ENOXAPARIN 30 MG/0.3 ML SYG SC (14:40)
[2018-12-14] MEDS: ENOXAPARIN 80 MG/0.8 ML SYG SC (15:00)
[2018-12-14] MEDS: INSULIN GLARGINE [LANTus] (100 UNITS/ML) SYG SC (20:53)
[2018-12-14] MEDS: morphine 2 MG INJ IV (21:11)
[2018-12-15] MEDS: CHLORHEXIDINE GLUCONATE 15 ML UD CUP MM ×3 (00:09→23:00)
[2018-12-15] MEDS: ACCU-CHEK XX (01:11)
[2018-12-15] MEDS: INSULIN ASPART [NOVOLOG] 3 ML PEN SC ×7 (07:25→20:22)
[2018-12-15] MEDS: PANTOPRAZOLE (EC) 40 MG TAB PO (07:54)
[2018-12-15] MEDS: SUCRALFATE 1 GM TAB PO ×4 (07:54→20:15)
[2018-12-15] MEDS: ACETYLCYSTEINE 20% 4 ML VIAL NEB ×2 (08:07→16:00)
[2018-12-15 08:28] LABS: ADD MAN DIFF? NO
[2018-12-15 08:39] LABS: WHITE BLOOD COUNT 10.1 10^3/ul (4.8-10.8)
[2018-12-15 08:39] LABS: BASOPHIL # 0.1 10^3/ul (0.0-0.1); BASOPHILS % 0.6 % (0.0-2.0); EOSINOPHILS # 0.3 10^3/ul (0.0-0.5); EOSINOPHILS % 2.5 % (0.0-7.0); HEMOGLOBIN 8.2 g/dl (14.0-18.0); LYMPHOCYTES # 1.3 10^3/ul (0.8-2.9); LYMPHOCYTES % 12.6 % (15.0-51.0); MEAN CORPUSCULAR HGB CONC 30.4 g/dl (32.0-37.0); MEAN CORPUSCULAR VOLUME 82.3 fl (82.0-101.0); MEAN PLATELET VOLUME 9.4 fl (7.4-10.4); MONOCYTE # 1.1 10^3/ul (0.3-0.9); MONOCYTES % 10.7 % (0.0-11.0); NEUTROPHIL # 7.3 10^3/ul (1.6-7.5); NEUTROPHILS % 72.5 % (39.0-77.0); PLATELET COUNT 167 10^3/UL (140-415); RED BLOOD COUNT 3.28 10^6/ul (4.70-6.10); RED CELL DISTRIBUTION WIDTH 18.1 % (11.5-14.5)
[2018-12-15 09:09] LABS: ANION GAP 7 (5-13); BLOOD UREA NITROGEN 27 mg/dl (7-20); CALCIUM 8.3 mg/dl (8.4-10.2); CARBON DIOXIDE 24 mmol/L (21-31); CHLORIDE 107 mmol/L (97-110); CREATININE 2.05 mg/dl (0.61-1.24); Estimated GFR 32 mL/min (>60); GLUCOSE 94 mg/dl (70-220); MAGNESIUM 2.1 mg/dl (1.7-2.5); PHOSPHORUS 4.9 mg/dl (2.5-4.9); POTASSIUM 4.3 mmol/L (3.5-5.1); SODIUM 138 mmol/L (135-144)
[2018-12-15] MEDS: ZYVOX 600 MG TAB PO ×2 (09:57→20:14)
[2018-12-15] MEDS: MULTIVITAMINS/MINERALS TAB PO (09:57)
[2018-12-15] MEDS: FLUCONAZOLE 100 MG TAB PO (09:57)
[2018-12-15] MEDS: FUROSEMIDE 40 MG INJ IV ×2 (09:57→20:14)
[2018-12-15] MEDS: FERROUS SULFATE (EC) 325 MG TAB PO (09:57)
[2018-12-15] MEDS: LINAGLIPTIN 5 MG TABLET PO (09:57)
[2018-12-15] MEDS: AMLODIPINE 5 MG TAB PO (09:57)
[2018-12-15] MEDS: METOPROLOL 25 MG TAB PO ×2 (09:58→20:15)
[2018-12-15] MEDS: morphine 2 MG INJ IV (09:58)
[2018-12-15] MEDS: ASCORBIC ACID 500 MG TAB PO (09:58)
[2018-12-15] MEDS: DIGOXIN 0.25 MG TAB PO (10:03)
[2018-12-15] MEDS: COLLAGENASE 5 GM (UD JAR) TOP (10:04)
[2018-12-15] MEDS: NYSTATIN 30 GM POWDER BTL TOP ×2 (10:04→20:16)
[2018-12-15] MEDS ORDERED: METOPROLOL 25 MG TAB PO (11:30)
[2018-12-15] MEDS: ENOXAPARIN 80 MG/0.8 ML SYG SC (11:41)
[2018-12-15] MEDS: ENOXAPARIN 30 MG/0.3 ML SYG SC (11:42)
[2018-12-15] MEDS: AMIKACIN 500 MG in SOD CHLORIDE 0.9% 100 ML IVPB (20:13)
[2018-12-15] MEDS: INSULIN GLARGINE [LANTus] (100 UNITS/ML) SYG SC (20:26)
[2018-12-16] MEDS: ACETYLCYSTEINE 20% 4 ML VIAL NEB ×3 (00:55→15:22)
[2018-12-16] MEDS: ACCU-CHEK XX (01:02)
[2018-12-16] MEDS: INSULIN ASPART [NOVOLOG] 3 ML PEN SC ×7 (07:25→21:00)
[2018-12-16 08:46] LABS: ADD MAN DIFF? NO
[2018-12-16 08:54] LABS: WHITE BLOOD COUNT 8.9 10^3/ul (4.8-10.8)
[2018-12-16 08:54] LABS: BASOPHIL # 0.1 10^3/ul (0.0-0.1); BASOPHILS % 0.6 % (0.0-2.0); EOSINOPHILS # 0.3 10^3/ul (0.0-0.5); EOSINOPHILS % 2.8 % (0.0-7.0); HEMATOCRIT 26.2 % (42.0-52.0); LYMPHOCYTES # 1.2 10^3/ul (0.8-2.9); LYMPHOCYTES % 13.2 % (15.0-51.0); MEAN CORPUSCULAR HEMOGLOBIN 25.2 pg (29.0-33.0); MEAN CORPUSCULAR HGB CONC 30.5 g/dl (32.0-37.0); MEAN CORPUSCULAR VOLUME 82.4 fl (82.0-101.0); MEAN PLATELET VOLUME 9.3 fl (7.4-10.4); MONOCYTES % 10.8 % (0.0-11.0); NEUTROPHIL # 6.4 10^3/ul (1.6-7.5); NEUTROPHILS % 71.8 % (39.0-77.0); PLATELET COUNT 156 10^3/UL (140-415); RED BLOOD COUNT 3.18 10^6/ul (4.70-6.10); RED CELL DISTRIBUTION WIDTH 18.1 % (11.5-14.5)
[2018-12-16] MEDS: FUROSEMIDE 40 MG INJ IV ×2 (09:02→20:59)
[2018-12-16] MEDS: SUCRALFATE 1 GM TAB PO ×4 (09:03→21:00)
[2018-12-16] MEDS: ZYVOX 600 MG TAB PO ×2 (09:03→20:59)
[2018-12-16] MEDS: FERROUS SULFATE (EC) 325 MG TAB PO (09:03)
[2018-12-16] MEDS: ASCORBIC ACID 500 MG TAB PO (09:03)
[2018-12-16] MEDS: PANTOPRAZOLE (EC) 40 MG TAB PO (09:03)
[2018-12-16] MEDS: FLUCONAZOLE 100 MG TAB PO (09:03)
[2018-12-16] MEDS: MULTIVITAMINS/MINERALS TAB PO (09:04)
[2018-12-16] MEDS: AMLODIPINE 5 MG TAB PO (09:04)
[2018-12-16] MEDS: COLLAGENASE 5 GM (UD JAR) TOP (09:05)
[2018-12-16] MEDS: METOPROLOL 25 MG TAB PO ×2 (09:05→21:00)
[2018-12-16] MEDS: NYSTATIN 30 GM POWDER BTL TOP ×2 (09:08→21:01)
[2018-12-16] MEDS: LINAGLIPTIN 5 MG TABLET PO (09:10)
[2018-12-16 09:19] LABS: ANION GAP 5 (5-13); BLOOD UREA NITROGEN 26 mg/dl (7-20); CALCIUM 8.4 mg/dl (8.4-10.2); CARBON DIOXIDE 28 mmol/L (21-31); CHLORIDE 106 mmol/L (97-110); CREATININE 2.08 mg/dl (0.61-1.24); Estimated GFR 32 mL/min (>60); GLUCOSE 71 mg/dl (70-220); POTASSIUM 4.3 mmol/L (3.5-5.1); SODIUM 139 mmol/L (135-144)
[2018-12-16 09:21] LABS: DIGOXIN 1.7 ng/ml (1.0-2.0)
[2018-12-16 10:37] LABS: AMIKACIN TROUGH 3.5 mg/L (4.0-8.0)
[2018-12-16] MEDS: CHLORHEXIDINE GLUCONATE 15 ML UD CUP MM ×2 (12:00→23:18)
[2018-12-16] MEDS: DIGOXIN 0.125 MG TAB PO (14:18)
[2018-12-16] MEDS: INSULIN GLARGINE [LANTus] (100 UNITS/ML) SYG SC (21:22)
[2018-12-16] MEDS: morphine 2 MG INJ IV (22:08)
[2018-12-16] MEDS: DIPHENHYDRAMINE 50 MG INJ IV (22:22)
[2018-12-17] MEDS: ACCU-CHEK XX (01:42)
[2018-12-17] MEDS ORDERED: CEFAZOLIN 1 GM INJ (07:00)
[2018-12-17] MEDS ORDERED: LIDOCAINE 1% (MPF) 30 ML INJ (07:02)
[2018-12-17] MEDS ORDERED: BUPIVACAINE 0.5%/EPI (SDV) 30 ML INJ (07:02)
[2018-12-17] MEDS: INSULIN ASPART [NOVOLOG] 3 ML PEN SC ×7 (07:25→21:02)
[2018-12-17] MEDS: SUCRALFATE 1 GM TAB PO ×4 (07:25→20:49)
[2018-12-17] MEDS: PANTOPRAZOLE (EC) 40 MG TAB PO (07:25)
[2018-12-17] MEDS ORDERED: MIDAZOLAM 1 MG/ML 2 ML INJ (07:40)
[2018-12-17] MEDS: ACETYLCYSTEINE 20% 4 ML VIAL NEB ×3 (08:00→15:06)
[2018-12-17 08:29] LABS: ADD MAN DIFF? NO
[2018-12-17 08:34] LABS: BASOPHIL # 0.1 10^3/ul (0.0-0.1); BASOPHILS % 0.6 % (0.0-2.0); EOSINOPHILS # 0.2 10^3/ul (0.0-0.5); EOSINOPHILS % 2.5 % (0.0-7.0); HEMOGLOBIN 8.1 g/dl (14.0-18.0); LYMPHOCYTES # 1.2 10^3/ul (0.8-2.9); LYMPHOCYTES % 14.5 % (15.0-51.0); MEAN CORPUSCULAR HEMOGLOBIN 25.6 pg (29.0-33.0); MEAN CORPUSCULAR HGB CONC 31.2 g/dl (32.0-37.0); MONOCYTE # 0.9 10^3/ul (0.3-0.9); MONOCYTES % 10.7 % (0.0-11.0); NEUTROPHILS % 70.5 % (39.0-77.0); PLATELET COUNT 161 10^3/UL (140-415); RED BLOOD COUNT 3.17 10^6/ul (4.70-6.10); RED CELL DISTRIBUTION WIDTH 18.1 % (11.5-14.5)
[2018-12-17 08:34] LABS: WHITE BLOOD COUNT 8.5 10^3/ul (4.8-10.8)
[2018-12-17 08:58] LABS: ANION GAP 5 (5-13); BLOOD UREA NITROGEN 24 mg/dl (7-20); CALCIUM 8.5 mg/dl (8.4-10.2); CARBON DIOXIDE 28 mmol/L (21-31); CHLORIDE 106 mmol/L (97-110); CREATININE 2.06 mg/dl (0.61-1.24); Estimated GFR 32 mL/min (>60); GLUCOSE 87 mg/dl (70-220); PHOSPHORUS 5.2 mg/dl (2.5-4.9); POTASSIUM 4.1 mmol/L (3.5-5.1); SODIUM 139 mmol/L (135-144)
[2018-12-17] MEDS: METOPROLOL 25 MG TAB PO ×2 (09:00→20:50)
[2018-12-17] MEDS: ASCORBIC ACID 500 MG TAB PO (09:00)
[2018-12-17] MEDS: COLLAGENASE 5 GM (UD JAR) TOP (09:00)
[2018-12-17] MEDS: MULTIVITAMINS/MINERALS TAB PO (09:00)
[2018-12-17] MEDS: AMLODIPINE 5 MG TAB PO ×2 (09:00→11:50)
[2018-12-17] MEDS: LINAGLIPTIN 5 MG TABLET PO (09:00)
[2018-12-17] MEDS: ZYVOX 600 MG TAB PO ×2 (09:00→20:49)
[2018-12-17] MEDS: FUROSEMIDE 40 MG INJ IV ×2 (09:00→20:49)
[2018-12-17] MEDS: NYSTATIN 30 GM POWDER BTL TOP ×2 (09:00→23:45)
[2018-12-17] MEDS: FLUCONAZOLE 100 MG TAB PO (09:00)
[2018-12-17] MEDS: FERROUS SULFATE (EC) 325 MG TAB PO (09:00)
[2018-12-17] MEDS ORDERED: ROCURONIUM 50 MG INJ (09:03)
[2018-12-17] MEDS ORDERED: ETOMIDATE 20 MG INJ (09:03)
[2018-12-17] MEDS ORDERED: LIDOCAINE 2% (SDV) 5 ML INJ (09:03)
[2018-12-17] MEDS ORDERED: DIPHENHYDRAMINE 50 MG INJ IV (09:30)
[2018-12-17] MEDS ORDERED: morphine (1 MG/ML) 10ML SYRINGE IV ×2 (09:30)
[2018-12-17] MEDS ORDERED: MEPERIDINE 25 MG INJ IV (09:30)
[2018-12-17] MEDS: morphine 2 MG INJ IV ×3 (09:51→17:45)
[2018-12-17 10:09] LABS: AADO2 Arterial 304.2 mmHg (7.0-24.0); Arterial Base Excess 0.3 mmol/L (-3.0-3); Arterial Blood Gas Oxygen Sat 98.5 mmHG (95.0-98.0); Arterial COHb 0.1 % (0.0-3.0); Arterial HCO3 26.4 mmol/L (22.0-26.0); Arterial MetHb 0.4 % (0.0-1.5); Arterial pCO2 49.9 mmhg (35-45); MODE VENT - AC; Site A-Line
[2018-12-17] MEDS: FENTAnyl 50 MCG/ML VIAL IV (10:21)
[2018-12-17] MEDS ORDERED: morphine 2 MG INJ IV (11:25)
[2018-12-17] MEDS: morphine 4 MG/ML VIAL IV ×2 (11:40→12:15)
[2018-12-17] MEDS: ONDANSETRON 4 MG INJ IV (11:50)
[2018-12-17] MEDS: CHLORHEXIDINE GLUCONATE 15 ML UD CUP MM ×2 (14:40→23:53)
[2018-12-17] MEDS: DIGOXIN 0.125 MG TAB PO (14:40)
[2018-12-17] MEDS: ALBUTEROL 0.083% (NEB) 2.5 MG/3 ML AMP NEB (15:06)
[2018-12-17 15:19] LABS: ABNORMAL IP MESSAGE 1; MEAN CORPUSCULAR HEMOGLOBIN 25.6 pg (29.0-33.0); MEAN CORPUSCULAR HGB CONC 30.9 g/dl (32.0-37.0); MEAN CORPUSCULAR VOLUME 82.7 fl (82.0-101.0); MEAN PLATELET VOLUME 8.9 fl (7.4-10.4); PLATELET COUNT 209 10^3/UL (140-415); POSITIVE DIFF @See below; RED BLOOD COUNT 2.66 10^6/ul (4.70-6.10); RED CELL DISTRIBUTION WIDTH 17.9 % (11.5-14.5)
[2018-12-17 15:19] LABS: WHITE BLOOD COUNT 21.7 10^3/ul (4.8-10.8)
[2018-12-17 15:27] LABS: ADD MAN DIFF? YES; HEMOGLOBIN 6.8 g/dl (14.0-18.0)
[2018-12-17 16:08] LABS: INR 1.11; PROTIME 14.4 Sec (11.9-14.9); PT RATIO 1.1
[2018-12-17 16:09] LABS: PARTIAL THROMBOPLASTIN TIME 30.3 Sec (23.0-35.0)
[2018-12-17 16:21] LABS: ANISOCYTOSIS 1+ (0-0); BAND NEUTROPHILS #M 1.5 10^3/ul (0.0-0.6); BAND NEUTROPHILS % (M) 7 % (0-4); HYPOCHROMASIA 2+ (0-0); LYMPHOCYTES #M 0.2 10^3/ul (0.8-2.9); LYMPHOCYTES % (M) 1 % (15-51); MICROCYTOSIS 1+ (0-0); PLATELET ESTIMATE NORMAL; POLYCHROMASIA 3+ (0-0); SEG NEUT #M 20.3 10^3/ul (1.6-7.5); SEGMENTED NEUTROPHILS (M) % 92 % (39-77); SMUDGE%M 2 % (0-0)
[2018-12-17 17:22] LABS: IMMEDIATE SPIN CROSSMATCH 1 4
[2018-12-17] MEDS: SOD CHLORIDE 0.9% IVPB (19:59)
[2018-12-17] MEDS: DESMOPRESSIN IVPB (19:59)
[2018-12-17] MEDS: INSULIN GLARGINE [LANTus] (100 UNITS/ML) SYG SC (20:18)
[2018-12-17] MEDS: AMIKACIN 500 MG in SOD CHLORIDE 0.9% 100 ML IVPB (23:45)
[2018-12-18] MEDS: ACETYLCYSTEINE 20% 4 ML VIAL NEB ×4 (00:49→23:45)
[2018-12-18] MEDS: ALBUTEROL 0.083% (NEB) 2.5 MG/3 ML AMP NEB ×3 (00:49→23:45)
[2018-12-18] MEDS: ACCU-CHEK XX (02:00)
[2018-12-18 04:20] LABS: AADO2 Arterial 88.6 mmHg (7.0-24.0); Arterial Base Excess -1.4 mmol/L (-3.0-3); Arterial Blood Gas Oxygen Sat 95.2 mmHG (95.0-98.0); Arterial COHb 0.5 % (0.0-3.0); Arterial Fraction of Oxyhgb 94.2 % (93.0-99.0); Arterial HCO3 23.4 mmol/L (22.0-26.0); Arterial MetHb 0.5 % (0.0-1.5); Arterial pCO2 39.6 mmhg (35-45); MODE VENT - AC; Site A-Line
[2018-12-18 05:19] LABS: ADD MAN DIFF? NO
[2018-12-18 05:27] LABS: ABNORMAL IP MESSAGE 1; BASOPHIL # 0.1 10^3/ul (0.0-0.1); BASOPHILS % 0.2 % (0.0-2.0); EOSINOPHILS # 0.1 10^3/ul (0.0-0.5); EOSINOPHILS % 0.2 % (0.0-7.0); HEMATOCRIT 26.1 % (42.0-52.0); HEMOGLOBIN 8.3 g/dl (14.0-18.0); LYMPHOCYTES # 1.6 10^3/ul (0.8-2.9); LYMPHOCYTES % 5.6 % (15.0-51.0); MEAN CORPUSCULAR HEMOGLOBIN 26.9 pg (29.0-33.0); MEAN CORPUSCULAR HGB CONC 31.8 g/dl (32.0-37.0); MEAN CORPUSCULAR VOLUME 84.5 fl (82.0-101.0); MEAN PLATELET VOLUME 9.2 fl (7.4-10.4); MONOCYTE # 1.6 10^3/ul (0.3-0.9); PLATELET COUNT 206 10^3/UL (140-415); POSITIVE DIFF @See below; RED BLOOD COUNT 3.09 10^6/ul (4.70-6.10); RED CELL DISTRIBUTION WIDTH 17.8 % (11.5-14.5)
[2018-12-18 05:27] LABS: WHITE BLOOD COUNT 28.6 10^3/ul (4.8-10.8)
[2018-12-18 05:51] LABS: MONOCYTES % 5.6 % (0.0-11.0); NEUTROPHILS % 87.6 % (39.0-77.0)
[2018-12-18 05:51] LABS: LACTIC ACID 1.4 mmol/L (0.5-2.0)
[2018-12-18 06:20] LABS: ANION GAP 7 (5-13); BLOOD UREA NITROGEN 29 mg/dl (7-20); CARBON DIOXIDE 25 mmol/L (21-31); CHLORIDE 105 mmol/L (97-110); CREATININE 2.11 mg/dl (0.61-1.24); Estimated GFR 31 mL/min (>60); GLUCOSE 107 mg/dl (70-220); MAGNESIUM 1.9 mg/dl (1.7-2.5); PHOSPHORUS 6.3 mg/dl (2.5-4.9); POTASSIUM 4.6 mmol/L (3.5-5.1); SODIUM 137 mmol/L (135-144)
[2018-12-18] MEDS: morphine 2 MG INJ IV ×2 (06:40→09:43)
[2018-12-18] MEDS: PANTOPRAZOLE (EC) 40 MG TAB PO (06:46)
[2018-12-18] MEDS: SUCRALFATE 1 GM TAB PO ×4 (06:46→21:32)
[2018-12-18] MEDS: INSULIN ASPART [NOVOLOG] 3 ML PEN SC ×7 (06:57→20:59)
[2018-12-18] MEDS: AMLODIPINE 5 MG TAB PO (09:00)
[2018-12-18] MEDS: METOLAZONE 5 MG TAB PO (09:30)
[2018-12-18] MEDS: FLUCONAZOLE 100 MG TAB PO (09:39)
[2018-12-18] MEDS: FERROUS SULFATE (EC) 325 MG TAB PO (09:39)
[2018-12-18] MEDS: ZYVOX 600 MG TAB PO ×2 (09:39→21:32)
[2018-12-18] MEDS: MULTIVITAMINS/MINERALS TAB PO (09:39)
[2018-12-18] MEDS: FUROSEMIDE 40 MG INJ IV ×2 (09:39→21:33)
[2018-12-18] MEDS: LINAGLIPTIN 5 MG TABLET PO (09:39)
[2018-12-18] MEDS: ASCORBIC ACID 500 MG TAB PO (09:39)
[2018-12-18] MEDS: COLLAGENASE 5 GM (UD JAR) TOP (09:40)
[2018-12-18] MEDS: NYSTATIN 30 GM POWDER BTL TOP (09:40)
[2018-12-18] MEDS: METOPROLOL 25 MG TAB PO ×2 (09:43→21:33)
[2018-12-18] MEDS: morphine 4 MG/ML VIAL IV (11:44)
[2018-12-18] MEDS: CHLORHEXIDINE GLUCONATE 15 ML UD CUP MM (13:16)
[2018-12-18] MEDS: DIGOXIN 0.125 MG TAB PO (13:16)
[2018-12-18] MEDS: INSULIN GLARGINE [LANTus] (100 UNITS/ML) SYG SC (21:02)
[2018-12-19] MEDS: CHLORHEXIDINE GLUCONATE 15 ML UD CUP MM ×2 (00:41→13:22)
[2018-12-19] MEDS: NYSTATIN 30 GM POWDER BTL TOP ×3 (00:41→21:00)
[2018-12-19] MEDS: morphine 4 MG/ML VIAL IV ×2 (01:44→09:48)
[2018-12-19] MEDS: ACETAMINOPHEN 325 MG TAB PO (01:44)
[2018-12-19] MEDS: ACCU-CHEK XX (02:00)
[2018-12-19] MEDS: INSULIN ASPART [NOVOLOG] 3 ML PEN SC ×7 (07:25→21:00)
[2018-12-19] MEDS: ACETYLCYSTEINE 20% 4 ML VIAL NEB ×3 (08:00→23:42)
[2018-12-19] MEDS: MULTIVITAMINS/MINERALS TAB PO (08:27)
[2018-12-19] MEDS: LINAGLIPTIN 5 MG TABLET PO (08:27)
[2018-12-19] MEDS: ZYVOX 600 MG TAB PO ×2 (08:27→21:26)
[2018-12-19] MEDS: FERROUS SULFATE (EC) 325 MG TAB PO (08:27)
[2018-12-19] MEDS: FLUCONAZOLE 100 MG TAB PO (08:28)
[2018-12-19] MEDS: SUCRALFATE 1 GM TAB PO ×4 (08:28→21:27)
[2018-12-19] MEDS: PANTOPRAZOLE (EC) 40 MG TAB PO (08:28)
[2018-12-19] MEDS: METOPROLOL 25 MG TAB PO ×2 (08:28→21:27)
[2018-12-19] MEDS: ASCORBIC ACID 500 MG TAB PO (08:28)
[2018-12-19] MEDS: FUROSEMIDE 40 MG INJ IV ×2 (08:29→21:27)
[2018-12-19] MEDS: AMLODIPINE 5 MG TAB PO (08:29)
[2018-12-19] MEDS: COLLAGENASE 5 GM (UD JAR) TOP (08:33)
[2018-12-19 11:08] LABS: ADD MAN DIFF? NO
[2018-12-19 11:15] LABS: ABNORMAL IP MESSAGE 1; BASOPHIL # 0.1 10^3/ul (0.0-0.1); BASOPHILS % 0.3 % (0.0-2.0); EOSINOPHILS # 0.2 10^3/ul (0.0-0.5); EOSINOPHILS % 1.1 % (0.0-7.0); HEMATOCRIT 22.6 % (42.0-52.0); HEMOGLOBIN 7.1 g/dl (14.0-18.0); LYMPHOCYTES # 1.4 10^3/ul (0.8-2.9); LYMPHOCYTES % 8.1 % (15.0-51.0); MEAN CORPUSCULAR HEMOGLOBIN 26.7 pg (29.0-33.0); MEAN CORPUSCULAR HGB CONC 31.4 g/dl (32.0-37.0); MEAN PLATELET VOLUME 8.9 fl (7.4-10.4); MONOCYTE # 1.5 10^3/ul (0.3-0.9); MONOCYTES % 8.9 % (0.0-11.0); NEUTROPHIL # 13.9 10^3/ul (1.6-7.5); NEUTROPHILS % 80.6 % (39.0-77.0); PLATELET COUNT 155 10^3/UL (140-415); POSITIVE DIFF @See below; RED BLOOD COUNT 2.66 10^6/ul (4.70-6.10); RED CELL DISTRIBUTION WIDTH 18.8 % (11.5-14.5)
[2018-12-19 11:15] LABS: WHITE BLOOD COUNT 17.2 10^3/ul (4.8-10.8)
[2018-12-19 11:55] LABS: ANION GAP 5 (5-13); BLOOD UREA NITROGEN 31 mg/dl (7-20); CARBON DIOXIDE 26 mmol/L (21-31); CHLORIDE 102 mmol/L (97-110); CREATININE 1.99 mg/dl (0.61-1.24); Estimated GFR 33 mL/min (>60); GLUCOSE 77 mg/dl (70-220); MAGNESIUM 1.8 mg/dl (1.7-2.5); PHOSPHORUS 5.9 mg/dl (2.5-4.9); POTASSIUM 4.4 mmol/L (3.5-5.1); SODIUM 133 mmol/L (135-144)
[2018-12-19 11:57] LABS: LACTIC ACID 0.7 mmol/L (0.5-2.0)
[2018-12-19] MEDS: DIGOXIN 0.125 MG TAB PO (12:39)
[2018-12-19] MEDS: AMIKACIN 500 MG in SOD CHLORIDE 0.9% 100 ML IVPB (21:32)
[2018-12-19] MEDS: INSULIN GLARGINE [LANTus] (100 UNITS/ML) SYG SC (21:35)
[2018-12-20] MEDS: CHLORHEXIDINE GLUCONATE 15 ML UD CUP MM ×2 (00:10→12:18)
[2018-12-20] MEDS: ACCU-CHEK XX (02:00)
[2018-12-20] MEDS: INSULIN ASPART [NOVOLOG] 3 ML PEN SC ×7 (07:25→20:12)
[2018-12-20] MEDS: ALBUTEROL 0.083% (NEB) 2.5 MG/3 ML AMP NEB ×2 (07:50→16:58)
[2018-12-20] MEDS: ACETYLCYSTEINE 20% 4 ML VIAL NEB ×2 (07:50→16:58)
[2018-12-20] MEDS: PANTOPRAZOLE (EC) 40 MG TAB PO (08:16)
[2018-12-20] MEDS: ZYVOX 600 MG TAB PO ×2 (08:16→20:08)
[2018-12-20] MEDS: MULTIVITAMINS/MINERALS TAB PO (08:16)
[2018-12-20] MEDS: FLUCONAZOLE 100 MG TAB PO (08:16)
[2018-12-20] MEDS: SUCRALFATE 1 GM TAB PO ×4 (08:16→20:08)
[2018-12-20] MEDS: COLLAGENASE 5 GM (UD JAR) TOP (08:17)
[2018-12-20] MEDS: FERROUS SULFATE (EC) 325 MG TAB PO (08:17)
[2018-12-20] MEDS: LINAGLIPTIN 5 MG TABLET PO (08:17)
[2018-12-20] MEDS: AMLODIPINE 5 MG TAB PO (08:17)
[2018-12-20] MEDS: FUROSEMIDE 40 MG INJ IV ×2 (08:17→20:09)
[2018-12-20] MEDS: METOPROLOL 25 MG TAB PO ×2 (08:17→20:08)
[2018-12-20] MEDS: ASCORBIC ACID 500 MG TAB PO (08:17)
[2018-12-20] MEDS: NYSTATIN 30 GM POWDER BTL TOP ×2 (08:17→20:13)
[2018-12-20 08:47] LABS: ADD MAN DIFF? NO
[2018-12-20 08:54] LABS: BASOPHILS % 0.3 % (0.0-2.0); EOSINOPHILS # 0.2 10^3/ul (0.0-0.5); EOSINOPHILS % 1.3 % (0.0-7.0); HEMATOCRIT 23.4 % (42.0-52.0); HEMOGLOBIN 7.3 g/dl (14.0-18.0); LYMPHOCYTES % 7.1 % (15.0-51.0); MEAN CORPUSCULAR HEMOGLOBIN 26.6 pg (29.0-33.0); MEAN CORPUSCULAR HGB CONC 31.2 g/dl (32.0-37.0); MEAN CORPUSCULAR VOLUME 85.4 fl (82.0-101.0); MEAN PLATELET VOLUME 9.1 fl (7.4-10.4); MONOCYTE # 1.1 10^3/ul (0.3-0.9); MONOCYTES % 7.7 % (0.0-11.0); NEUTROPHIL # 11.9 10^3/ul (1.6-7.5); NEUTROPHILS % 82.1 % (39.0-77.0); PLATELET COUNT 172 10^3/UL (140-415); RED BLOOD COUNT 2.74 10^6/ul (4.70-6.10); RED CELL DISTRIBUTION WIDTH 18.8 % (11.5-14.5)
[2018-12-20 08:54] LABS: WHITE BLOOD COUNT 14.4 10^3/ul (4.8-10.8)
[2018-12-20] MEDS: METOLAZONE 5 MG TAB PO (09:19)
[2018-12-20 09:21] LABS: ANION GAP 7 (5-13); BLOOD UREA NITROGEN 29 mg/dl (7-20); CALCIUM 8.1 mg/dl (8.4-10.2); CARBON DIOXIDE 26 mmol/L (21-31); CHLORIDE 98 mmol/L (97-110); CREATININE 2.35 mg/dl (0.61-1.24); Estimated GFR 28 mL/min (>60); GLUCOSE 103 mg/dl (70-220); MAGNESIUM 1.8 mg/dl (1.7-2.5); PHOSPHORUS 5.6 mg/dl (2.5-4.9); POTASSIUM 4.1 mmol/L (3.5-5.1); SODIUM 131 mmol/L (135-144)
[2018-12-20] MEDS: morphine 4 MG/ML VIAL IV ×2 (09:22→20:06)
[2018-12-20] MEDS: DIGOXIN 0.125 MG TAB PO (13:00)
[2018-12-20] MEDS: MAGNESIUM SULFATE 2 GM/50 ML 50 ML IVPB (15:31)
[2018-12-20] MEDS: INSULIN GLARGINE [LANTus] (100 UNITS/ML) SYG SC (20:23)
== END 2018-12-20 21:15 | DRG 163 ==
LOC: ICU 12-17 09:34 → TEL 12-18 14:02
PROC: 0BNF0ZZ Release Right Lower Lung Lobe, Open Approach (ICD-10-PCS; principal; 2018-12-17 07:30)
PROC: 0W990ZZ Drainage of Right Pleural Cavity, Open Approach (ICD-10-PCS; 2018-12-17 07:30)
PROC: 0W9930Z Drainage of Right Pleural Cavity with Drainage Device, Percutaneous Approach (ICD-10-PCS; 2018-12-17 07:56)
PROC: 0W9930Z Drainage of Right Pleural Cavity with Drainage Device, Percutaneous Approach (ICD-10-PCS; 2018-12-17 07:56)
PROC: 30233N1 Transfusion of Nonautologous Red Blood Cells into Peripheral Vein, Percutaneous Approach (ICD-10-PCS; 2018-12-17 07:56)
PROC: 5A1955Z Respiratory Ventilation, Greater than 96 Consecutive Hours (ICD-10-PCS; 2018-12-17 07:56)
DX: J86.9 Pyothorax without fistula (principal); J96.21 Acute and chronic respiratory failure with hypoxia; J18.9 Pneumonia, unspecified organism; J96.22 Acute and chronic respiratory failure with hypercapnia; I50.33 Acute on chronic diastolic (congestive) heart failure; Z99.11 Dependence on respirator [ventilator] status; J90 Pleural effusion, not elsewhere classified; N17.9 Acute kidney failure, unspecified; I42.9 Cardiomyopathy, unspecified; B37.49 Other urogenital candidiasis; D63.8 Anemia in other chronic diseases classified elsewhere; E11.22 Type 2 diabetes mellitus with diabetic chronic kidney disease; E66.01 Morbid (severe) obesity due to excess calories; E78.5 Hyperlipidemia, unspecified; E87.70 Fluid overload, unspecified; I48.0 Paroxysmal atrial fibrillation; I27.20 Pulmonary hypertension, unspecified; I11.0 Hypertensive heart disease with heart failure; I25.10 Atherosclerotic heart disease of native coronary artery without angina pectoris; J44.9 Chronic obstructive pulmonary disease, unspecified; K74.60 Unspecified cirrhosis of liver; N18.3 Chronic kidney disease, stage 3 (moderate); R13.10 Dysphagia, unspecified; Y95 Nosocomial condition; Z68.38 Body mass index [BMI] 38.0-38.9, adult; Z93.0 Tracheostomy status; Z93.1 Gastrostomy status; Z79.4 Long term (current) use of insulin; Z79.01 Long term (current) use of anticoagulants
CPT/HCPCS: 36430; 36600; 71045; 74018; 75989; 76705; 77012; 80048; 80053; 80150; 80162; 81001; 81003; 82043; 82803; 82962; 83036; 83605; 83735; 83880; 84100; 84155; 84300; 85025; 85384; 85610; 85730; 86704; 86706; 86708; 86709; 86803; 86850; 86900; 86901; 86920; 87040-91; 87070; 87081; 87086; 87102; 87116; 87340; 88305; 88307; 88311; 92610; 94002; 94003; 94640; 94664

== ENCOUNTER 2019-04-04 12:19 | Day surgery (SDC) | payer OTHER ==
[2019-04-04] MEDS ORDERED: PROPOFOL 20 ML ×2 (14:18→14:54)
[2019-04-04] MEDS ORDERED: ETOMIDATE 20 MG INJ (14:18)
== END 2019-04-04 19:00 | disposition home or self-care (01) ==
LOC: SDS 12:19
DX: I07.1 Rheumatic tricuspid insufficiency (principal); I70.0 Atherosclerosis of aorta; E11.9 Type 2 diabetes mellitus without complications; I50.30 Unspecified diastolic (congestive) heart failure; I48.0 Paroxysmal atrial fibrillation; J44.9 Chronic obstructive pulmonary disease, unspecified; G20 Parkinson's disease
CPT/HCPCS: 93312

== ENCOUNTER 2019-04-17 20:13 | Inpatient (IN) | payer MEDICARE, OTHER ==
[2019-04-17] MEDS ORDERED: ACETAMINOPHEN 325 MG TAB PO ×2 (21:00→21:30)
[2019-04-17] MEDS ORDERED: ACETAMINOPHEN 650MG/20.3ML CUP PO (21:00)
[2019-04-17] MEDS: LIDOCAINE 1% (MDV) 20 ML INJ INJ (21:00)
[2019-04-17] MEDS ORDERED: LORAZEPAM 2 MG INJ IV (21:00)
[2019-04-17] MEDS ORDERED: ACETAMINOPHEN 650 MG SUPP PR (21:00)
[2019-04-17] MEDS ORDERED: HYDROmorphONE 0.5 MG/0.5 ML SYG IV (21:00)
[2019-04-17] MEDS ORDERED: ALBUTEROL/IPRATROPIUM (NEB) 3 ML AMP NEB (21:30)
[2019-04-17] MEDS ORDERED: LORAZEPAM 1 MG TAB PO (21:30)
[2019-04-17] MEDS: CHLORHEXIDINE GLUCONATE 15 ML UD CUP MM (21:30)
[2019-04-17] MEDS ORDERED: DOCUSATE SODIUM 100 MG CAP PO (22:00)
[2019-04-17] MEDS: ACETYLCYSTEINE 20% 4 ML VIAL NEB (22:00)
[2019-04-17] MEDS ORDERED: DIPHENHYDRAMINE 50 MG INJ IV (22:00)
[2019-04-17] MEDS ORDERED: ONDANSETRON 4 MG INJ IV (22:00)
[2019-04-17] MEDS ORDERED: AMIKACIN IV PER PHARMACY XX (22:30)
[2019-04-17 22:51] LABS: ABNORMAL IP MESSAGE 1; HEMATOCRIT 24.7 % (42.0-52.0); HEMOGLOBIN 7.6 g/dl (14.0-18.0); MEAN CORPUSCULAR HEMOGLOBIN 30.2 pg (29.0-33.0); MEAN CORPUSCULAR HGB CONC 30.8 g/dl (32.0-37.0); MEAN PLATELET VOLUME 10.2 fl (7.4-10.4); NUCLEATED RED BLOOD CELLS% 0.3 /100WBC (0.0-0.0); PLATELET COUNT 37 10^3/UL (140-415); POSITIVE DIFF @See below; RED BLOOD COUNT 2.52 10^6/ul (4.70-6.10); RED CELL DISTRIBUTION WIDTH 20.3 % (11.5-14.5)
[2019-04-17 22:57] LABS: ADD MAN DIFF? YES
[2019-04-17] MEDS ORDERED: GLUCOSE GEL 15 GRAM TUBE BUCCAL (23:00)
[2019-04-17] MEDS ORDERED: GLUCOSE GEL 15 GRAM TUBE PO ×2 (23:00)
[2019-04-17] MEDS ORDERED: GLUCAGON 1 MG INJ IM (23:00)
[2019-04-17] MEDS ORDERED: DEXTROSE 50% 50 ML SYRINGE IV ×2 (23:00)
[2019-04-17 23:06] LABS: ALANINE AMINOTRANSFERASE 23 IU/L (13-69); ALBUMIN 2.8 g/dl (3.3-4.9); ALKALINE PHOSPHATASE 222 IU/L (42-121); ANION GAP 11 (5-13); ASPARTATE AMINO TRANSFERASE 16 IU/L (15-46); BILIRUBIN,INDIRECT 0.3 mg/dl (0-1.1); BILIRUBIN,TOTAL 0.3 mg/dl (0.2-1.3); BLOOD UREA NITROGEN 48 mg/dl (7-20); CALCIUM 9.3 mg/dl (8.4-10.2); CARBON DIOXIDE 24 mmol/L (21-31); CHLORIDE 98 mmol/L (97-110); CREATININE 2.63 mg/dl (0.61-1.24); Estimated GFR 24 mL/min (>60); GLUCOSE 121 mg/dl (70-220); SODIUM 133 mmol/L (135-144); TOTAL PROTEIN 5.5 g/dl (6.1-8.1)
[2019-04-18] MEDS: ACETYLCYSTEINE 20% 4 ML VIAL NEB
[2019-04-18] MEDS ORDERED: ACETYLCYSTEINE 20% 4 ML VIAL NEB
[2019-04-18] MEDS ORDERED: HEPARIN 1000 UNITS/ML 10 ML INJ IV
[2019-04-18] MEDS: ASPIRIN 81 MG TAB PO
[2019-04-18] MEDS: HEPARIN 1000 UNITS/ML 10 ML INJ IV
[2019-04-18] MEDS ORDERED: HEPARIN 25000 UNITS/250 ML 250 ML IV
[2019-04-18 00:17] LABS: PROCALCITONIN 0.51 ng/mL (0.00-0.10)
[2019-04-18] MEDS: AMIKACIN 625 MG in SOD CHLORIDE 0.9% 100 ML IVPB (00:19)
[2019-04-18 00:31] LABS: ADD MAN DIFF? NO
[2019-04-18 00:48] LABS: ABNORMAL IP MESSAGE 1; BASOPHILS % 0.1 % (0.0-2.0); EOSINOPHILS % 0.1 % (0.0-7.0); HEMATOCRIT 24.3 % (42.0-52.0); HEMOGLOBIN 7.5 g/dl (14.0-18.0); LYMPHOCYTES # 0.7 10^3/ul (0.8-2.9); LYMPHOCYTES % 2.3 % (15.0-51.0); MEAN CORPUSCULAR HEMOGLOBIN 29.8 pg (29.0-33.0); MEAN CORPUSCULAR HGB CONC 30.9 g/dl (32.0-37.0); MEAN CORPUSCULAR VOLUME 96.4 fl (82.0-101.0); MEAN PLATELET VOLUME 11.6 fl (7.4-10.4); MONOCYTE # 1.4 10^3/ul (0.3-0.9); MONOCYTES % 4.9 % (0.0-11.0); NEUTROPHIL # 26.5 10^3/ul (1.6-7.5); NEUTROPHILS % 89.5 % (39.0-77.0); NUCLEATED RED BLOOD CELLS # 0.1 10^3/ul (0.0-0.0); NUCLEATED RED BLOOD CELLS% 0.2 /100WBC (0.0-0.0); PLATELET COUNT 34 10^3/UL (140-415); POSITIVE DIFF @See below; RED BLOOD COUNT 2.52 10^6/ul (4.70-6.10); RED CELL DISTRIBUTION WIDTH 20.5 % (11.5-14.5)
[2019-04-18 00:48] LABS: WHITE BLOOD COUNT 29.6 10^3/ul (4.8-10.8)
[2019-04-18 00:55] LABS: INR 1.16; PROTIME 14.9 Sec (11.9-14.9); PT RATIO 1.2
[2019-04-18 00:56] LABS: PARTIAL THROMBOPLASTIN TIME 28.3 Sec (23.0-35.0)
[2019-04-18] MEDS ORDERED: ACETAMINOPHEN 325 MG TAB PO (01:00)
[2019-04-18] MEDS: AMIODARONE 900 MG in DEXTROSE 5% 482 ML IV (02:00)
[2019-04-18] MEDS: ACCU-CHEK XX ×5 (02:00→21:02)
[2019-04-18] MEDS: BUMETANIDE 1 MG INJ IV ×2 (06:00→17:44)
[2019-04-18] MEDS: PANTOPRAZOLE (EC) 40 MG TAB PO (06:11)
[2019-04-18] MEDS ORDERED: SUCRALFATE 1 GM TAB PO (07:05)
[2019-04-18] MEDS: INSULIN ASPART [NOVOLOG] 3 ML PEN SC ×4 (07:35→21:00)
[2019-04-18] MEDS: CALCIUM ACETATE 667 MG CAP PO ×3 (07:35→17:51)
[2019-04-18 07:54] LABS: AADO2 Arterial 150.8 mmHg (7.0-24.0); Allen Test ACCEPTAB; Arterial Base Excess -3.2 mmol/L (-3.0-3); Arterial COHb 0.7 % (0.0-3.0); Arterial Fraction of Oxyhgb 97.9 % (93.0-99.0); Arterial HCO3 21.6 mmol/L (22.0-26.0); Arterial MetHb 0.4 % (0.0-1.5); Arterial pCO2 37.6 mmhg (35-45); MODE VENT - AC; Site Right Radial
[2019-04-18] MEDS: INSULIN GLARGINE [LANTus] (100 UNITS/ML) SYG SC (08:00)
[2019-04-18] MEDS: FERROUS SULFATE (EC) 325 MG TAB PO (08:06)
[2019-04-18] MEDS: ESCITALOPRAM 10 MG TAB PO (08:06)
[2019-04-18] MEDS: MIDODRINE 5 MG TAB PO ×3 (08:06→17:51)
[2019-04-18] MEDS: POLYETHYLENE GLYCOL 17 GM PACKET PO (08:06)
[2019-04-18] MEDS: SILDENAFIL 20 MG TAB PO ×2 (08:07→20:20)
[2019-04-18] MEDS: ASCORBIC ACID 500 MG TAB PO (08:08)
[2019-04-18] MEDS: MULTIVITAMINS THERAPEUTIC TAB PO (08:08)
[2019-04-18] MEDS ORDERED: AMIKACIN (5 MG/ML) IV SYG IV* (09:00)
[2019-04-18] MEDS ORDERED: INSULIN GLARGINE [LANtus] 3 ML PEN SC ×2 (09:00→21:00)
[2019-04-18] MEDS ORDERED: AMLODIPINE 5 MG TAB PO (09:00)
[2019-04-18] MEDS ORDERED: DIGOXIN 0.25 MG TAB PO (09:00)
[2019-04-18] MEDS ORDERED: [UNRECOGNIZED DRUG - OTHER] IV (09:00)
[2019-04-18] MEDS ORDERED: METOPROLOL 25 MG TAB PO (09:00)
[2019-04-18] MEDS ORDERED: FLUCONAZOLE 100 MG TAB PO (09:00)
[2019-04-18] MEDS ORDERED: ZYVOX 600 MG TAB PO (09:00)
[2019-04-18] MEDS ORDERED: LINAGLIPTIN 5 MG TABLET PO (09:00)
[2019-04-18] MEDS: CHLORHEXIDINE GLUCONATE 15 ML UD CUP MM ×2 (09:23→20:36)
[2019-04-18] MEDS: NYSTATIN 15 GM CR TOP ×2 (09:29→20:36)
[2019-04-18] MEDS: BALSAM PERU/CASTOR OIL 60 GM TUBE TOP ×2 (09:29→20:36)
[2019-04-18] MEDS ORDERED: AMIKACIN 425 MG in SOD CHLORIDE 0.9% 100 ML IVPB (11:24)
[2019-04-18] MEDS ORDERED: ALBUMIN HUMAN 25% 100 ML IV (13:30)
[2019-04-18] MEDS ORDERED: SODIUM CHLORIDE 0.9% 1L BAG IV (13:30)
[2019-04-18] MEDS: SOD FERRIC GLUC COMPLX 125 MG in SOD CHLORIDE 0.9% 100 ML IVPB (13:32)
[2019-04-18] MEDS: morphine 2 MG INJ IV (14:12)
[2019-04-18] MEDS: PIPER-TAZO 2.25 GM (PMX) 50 ML IVPB ×2 (15:05→21:00)
[2019-04-18] MEDS ORDERED: RIVAROXABAN 15 MG TABLET PO (17:35)
[2019-04-19] MEDS: ACCU-CHEK XX ×5 (02:00→20:28)
[2019-04-19] MEDS: morphine 2 MG INJ IV ×2 (04:01→18:24)
[2019-04-19] MEDS: BUMETANIDE 1 MG INJ IV ×2 (06:00→17:24)
[2019-04-19] MEDS: MIDODRINE 5 MG TAB PO ×4 (06:59→17:24)
[2019-04-19] MEDS: PANTOPRAZOLE (EC) 40 MG TAB PO (07:05)
[2019-04-19] MEDS: PIPER-TAZO 2.25 GM (PMX) 50 ML IVPB ×3 (07:07→22:03)
[2019-04-19 07:31] LABS: IMMEDIATE SPIN CROSSMATCH 1 1
[2019-04-19] MEDS: INSULIN ASPART [NOVOLOG] 3 ML PEN SC ×4 (07:35→20:27)
[2019-04-19 07:51] LABS: ADD MAN DIFF? NO
[2019-04-19 07:57] LABS: ABNORMAL IP MESSAGE 1; BASOPHILS % 0.2 % (0.0-2.0); HEMATOCRIT 24.1 % (42.0-52.0); HEMOGLOBIN 7.4 g/dl (14.0-18.0); LYMPHOCYTES # 0.5 10^3/ul (0.8-2.9); LYMPHOCYTES % 1.7 % (15.0-51.0); MEAN CORPUSCULAR HEMOGLOBIN 30.1 pg (29.0-33.0); MEAN CORPUSCULAR HGB CONC 30.7 g/dl (32.0-37.0); MEAN PLATELET VOLUME 11.5 fl (7.4-10.4); MONOCYTE # 1.2 10^3/ul (0.3-0.9); MONOCYTES % 4.5 % (0.0-11.0); NEUTROPHIL # 23.5 10^3/ul (1.6-7.5); NEUTROPHILS % 90.4 % (39.0-77.0); NUCLEATED RED BLOOD CELLS% 0.2 /100WBC (0.0-0.0); POSITIVE DIFF @See below; RED BLOOD COUNT 2.46 10^6/ul (4.70-6.10); RED CELL DISTRIBUTION WIDTH 21.7 % (11.5-14.5)
[2019-04-19 08:09] LABS: PLATELET COUNT 32 10^3/UL (140-415)
[2019-04-19] MEDS: INSULIN GLARGINE [LANTus] (100 UNITS/ML) SYG SC (08:15)
[2019-04-19] MEDS: CHLORHEXIDINE GLUCONATE 15 ML UD CUP MM ×2 (08:15→20:40)
[2019-04-19 08:25] LABS: ANION GAP 9 (5-13); BLOOD UREA NITROGEN 50 mg/dl (7-20); CALCIUM 8.8 mg/dl (8.4-10.2); CARBON DIOXIDE 25 mmol/L (21-31); CHLORIDE 100 mmol/L (97-110); CREATININE 2.79 mg/dl (0.61-1.24); Estimated GFR 23 mL/min (>60); GLUCOSE 121 mg/dl (70-220); PHOSPHORUS 4.6 mg/dl (2.5-4.9); POTASSIUM 4.1 mmol/L (3.5-5.1); SODIUM 134 mmol/L (135-144)
[2019-04-19 08:47] LABS: HEPATITIS B SURFACE ANTIGEN NEGATIVE (NEGATIVE)
[2019-04-19] MEDS: SILDENAFIL 20 MG TAB PO ×2 (09:00→20:26)
[2019-04-19] MEDS: ALBUMIN HUMAN 25% 100 ML IV (09:11)
[2019-04-19] MEDS: HEPARIN 1000 UNITS/ML 10 ML INJ CATHETER (10:36)
[2019-04-19] MEDS: ASCORBIC ACID 500 MG TAB PO (10:56)
[2019-04-19] MEDS: ESCITALOPRAM 10 MG TAB PO (10:56)
[2019-04-19] MEDS: CALCIUM ACETATE 667 MG CAP PO ×3 (10:56→17:23)
[2019-04-19] MEDS: MULTIVITAMINS THERAPEUTIC TAB PO (10:56)
[2019-04-19] MEDS: FERROUS SULFATE (EC) 325 MG TAB PO (10:56)
[2019-04-19] MEDS: NYSTATIN 15 GM CR TOP ×2 (10:57→20:27)
[2019-04-19] MEDS: BALSAM PERU/CASTOR OIL 60 GM TUBE TOP ×2 (10:57→20:27)
[2019-04-19] MEDS: POLYETHYLENE GLYCOL 17 GM PACKET PO (10:57)
[2019-04-19] MEDS: SOD FERRIC GLUC COMPLX 125 MG in SOD CHLORIDE 0.9% 100 ML IVPB (14:25)
[2019-04-19] MEDS: DAKINS 0.0125%(1/40) 473 ML SOLUTION TP (14:59)
[2019-04-19] MEDS: EPOETIN ALFA-EPBX (ESRD) 4,000 UNIT/ML VIAL SC (17:53)
[2019-04-19] MEDS: AMIODARONE 200 MG TAB PO (20:26)
[2019-04-20] MEDS: ACCU-CHEK XX ×5 (02:00→21:00)
[2019-04-20] MEDS: PIPER-TAZO 2.25 GM (PMX) 50 ML IVPB ×3 (05:46→22:35)
[2019-04-20] MEDS: BUMETANIDE 1 MG INJ IV ×2 (05:49→17:26)
[2019-04-20] MEDS: PANTOPRAZOLE (EC) 40 MG TAB PO (05:49)
[2019-04-20] MEDS: INSULIN ASPART [NOVOLOG] 3 ML PEN SC ×4 (07:55→21:00)
[2019-04-20] MEDS: ASCORBIC ACID 500 MG TAB PO (08:09)
[2019-04-20] MEDS: MULTIVITAMINS THERAPEUTIC TAB PO (08:09)
[2019-04-20] MEDS: ESCITALOPRAM 10 MG TAB PO (08:09)
[2019-04-20] MEDS: CALCIUM ACETATE 667 MG CAP PO ×3 (08:10→17:25)
[2019-04-20] MEDS: FERROUS SULFATE (EC) 325 MG TAB PO (08:13)
[2019-04-20] MEDS: AMIODARONE 200 MG TAB PO ×3 (08:14→21:00)
[2019-04-20] MEDS: MIDODRINE 5 MG TAB PO ×3 (08:15→17:14)
[2019-04-20] MEDS: SILDENAFIL 20 MG TAB PO ×2 (08:16→21:00)
[2019-04-20] MEDS: POLYETHYLENE GLYCOL 17 GM PACKET PO (08:16)
[2019-04-20] MEDS: BALSAM PERU/CASTOR OIL 60 GM TUBE TOP ×2 (08:18→21:04)
[2019-04-20] MEDS: NYSTATIN 15 GM CR TOP ×2 (08:18→21:04)
[2019-04-20] MEDS: CHLORHEXIDINE GLUCONATE 15 ML UD CUP MM ×2 (08:25→21:04)
[2019-04-20] MEDS: INSULIN GLARGINE [LANTus] (100 UNITS/ML) SYG SC (09:55)
[2019-04-20 11:03] LABS: ADD MAN DIFF? NO
[2019-04-20 11:15] LABS: ABNORMAL IP MESSAGE 1; BASOPHILS % 0.2 % (0.0-2.0); EOSINOPHILS % 0.1 % (0.0-7.0); HEMATOCRIT 29.1 % (42.0-52.0); HEMOGLOBIN 8.8 g/dl (14.0-18.0); LYMPHOCYTES # 0.7 10^3/ul (0.8-2.9); LYMPHOCYTES % 3.8 % (15.0-51.0); MEAN CORPUSCULAR HEMOGLOBIN 29.3 pg (29.0-33.0); MEAN CORPUSCULAR HGB CONC 30.2 g/dl (32.0-37.0); MEAN PLATELET VOLUME 12.7 fl (7.4-10.4); MONOCYTE # 0.9 10^3/ul (0.3-0.9); NEUTROPHILS % 87.9 % (39.0-77.0); NUCLEATED RED BLOOD CELLS # 0.1 10^3/ul (0.0-0.0); NUCLEATED RED BLOOD CELLS% 0.4 /100WBC (0.0-0.0); PLATELET COUNT 33 10^3/UL (140-415); POSITIVE DIFF @See below; RED CELL DISTRIBUTION WIDTH 22.9 % (11.5-14.5)
[2019-04-20 11:15] LABS: WHITE BLOOD COUNT 18.2 10^3/ul (4.8-10.8)
[2019-04-20 11:32] LABS: LACTIC ACID 1.7 mmol/L (0.5-2.0)
[2019-04-20 11:39] LABS: ANION GAP 9 (5-13); BLOOD UREA NITROGEN 43 mg/dl (7-20); CALCIUM 9.3 mg/dl (8.4-10.2); CARBON DIOXIDE 25 mmol/L (21-31); CHLORIDE 100 mmol/L (97-110); CREATININE 2.46 mg/dl (0.61-1.24); Estimated GFR 26 mL/min (>60); GLUCOSE 102 mg/dl (70-220); POTASSIUM 4.3 mmol/L (3.5-5.1); SODIUM 134 mmol/L (135-144)
[2019-04-20] MEDS: SOD FERRIC GLUC COMPLX 125 MG in SOD CHLORIDE 0.9% 100 ML IVPB ×2 (12:57→13:02)
[2019-04-21] MEDS: ACCU-CHEK XX ×5 (02:00→21:00)
[2019-04-21] MEDS: BUMETANIDE 1 MG INJ IV ×2 (06:00→17:18)
[2019-04-21] MEDS: PIPER-TAZO 2.25 GM (PMX) 50 ML IVPB ×3 (06:14→22:12)
[2019-04-21] MEDS: PANTOPRAZOLE (EC) 40 MG TAB PO (06:15)
[2019-04-21] MEDS: INSULIN ASPART [NOVOLOG] 3 ML PEN SC ×4 (07:31→21:00)
[2019-04-21] MEDS: CALCIUM ACETATE 667 MG CAP PO ×3 (07:55→17:18)
[2019-04-21] MEDS: CHLORHEXIDINE GLUCONATE 15 ML UD CUP MM ×2 (08:22→22:12)
[2019-04-21] MEDS: NYSTATIN 15 GM CR TOP ×2 (08:23→21:10)
[2019-04-21] MEDS: BALSAM PERU/CASTOR OIL 60 GM TUBE TOP ×2 (08:23→21:12)
[2019-04-21] MEDS: INSULIN GLARGINE [LANTus] (100 UNITS/ML) SYG SC (08:25)
[2019-04-21] MEDS: ASCORBIC ACID 500 MG TAB PO (09:00)
[2019-04-21] MEDS: SILDENAFIL 20 MG TAB PO ×2 (09:00→21:00)
[2019-04-21] MEDS: MULTIVITAMINS THERAPEUTIC TAB PO (09:00)
[2019-04-21] MEDS: POLYETHYLENE GLYCOL 17 GM PACKET PO (09:00)
[2019-04-21] MEDS: FERROUS SULFATE (EC) 325 MG TAB PO (09:00)
[2019-04-21] MEDS: AMIODARONE 200 MG TAB PO ×2 (09:00→21:08)
[2019-04-21] MEDS: ESCITALOPRAM 10 MG TAB PO (09:00)
[2019-04-21] MEDS: MIDODRINE 5 MG TAB PO ×3 (09:00→17:11)
[2019-04-21] MEDS: ALBUMIN HUMAN 25% 100 ML IV (11:09)
[2019-04-21] MEDS: HEPARIN 1000 UNITS/ML 10 ML INJ CATHETER (13:20)
[2019-04-21 14:09] LABS: ABNORMAL IP MESSAGE 1; HEMATOCRIT 29.3 % (42.0-52.0); HEMOGLOBIN 8.9 g/dl (14.0-18.0); MEAN CORPUSCULAR HEMOGLOBIN 29.8 pg (29.0-33.0); MEAN CORPUSCULAR HGB CONC 30.4 g/dl (32.0-37.0); NUCLEATED RED BLOOD CELLS% 0.2 /100WBC (0.0-0.0); POSITIVE DIFF @See below; RED BLOOD COUNT 2.99 10^6/ul (4.70-6.10); RED CELL DISTRIBUTION WIDTH 22.7 % (11.5-14.5)
[2019-04-21 14:09] LABS: WHITE BLOOD COUNT 16.5 10^3/ul (4.8-10.8)
[2019-04-21 14:15] LABS: ADD MAN DIFF? YES; PLATELET COUNT 18 10^3/UL (140-415)
[2019-04-21 14:30] LABS: ANION GAP 8 (5-13); BLOOD UREA NITROGEN 27 mg/dl (7-20); CALCIUM 9.3 mg/dl (8.4-10.2); CARBON DIOXIDE 27 mmol/L (21-31); CHLORIDE 102 mmol/L (97-110); CREATININE 1.91 mg/dl (0.61-1.24); Estimated GFR 35 mL/min (>60); GLUCOSE 69 mg/dl (70-220); POTASSIUM 3.6 mmol/L (3.5-5.1); SODIUM 137 mmol/L (135-144)
[2019-04-21 14:41] LABS: ANISOCYTOSIS 2+ (0-0); BAND NEUTROPHILS #M 0.6 10^3/ul (0.0-0.6); BAND NEUTROPHILS % (M) 4 % (0-4); EOSINOPHILS % (M) 2 % (0-7); HYPOCHROMASIA 1+ (0-0); LYMPHOCYTES #M 0.9 10^3/ul (0.8-2.9); LYMPHOCYTES % (M) 6 % (15-51); MONOCYTE #M 1.1 10^3/ul (0.3-0.9); MONOCYTES % (M) 7 % (0-11); PLATELET ESTIMATE SIG DECREASED; POLYCHROMASIA 2+ (0-0); SEG NEUT #M 13.5 10^3/ul (1.6-7.5); SEGMENTED NEUTROPHILS (M) % 81 % (39-77); SMUDGE%M 1 % (0-0)
[2019-04-21] MEDS: EPOETIN ALFA-EPBX (ESRD) 4,000 UNIT/ML VIAL SC (17:13)
[2019-04-22] MEDS: ACCU-CHEK XX ×5 (02:00→20:53)
[2019-04-22] MEDS: PIPER-TAZO 2.25 GM (PMX) 50 ML IVPB ×3 (06:29→20:41)
[2019-04-22] MEDS: PANTOPRAZOLE (EC) 40 MG TAB PO (06:59)
[2019-04-22] MEDS: INSULIN ASPART [NOVOLOG] 3 ML PEN SC ×4 (07:55→20:53)
[2019-04-22 08:30] LABS: ADD MAN DIFF? NO
[2019-04-22 08:46] LABS: ABNORMAL IP MESSAGE 1; BASOPHIL # 0.1 10^3/ul (0.0-0.1); BASOPHILS % 0.2 % (0.0-2.0); EOSINOPHILS % 0.1 % (0.0-7.0); HEMOGLOBIN 9.2 g/dl (14.0-18.0); LYMPHOCYTES # 0.8 10^3/ul (0.8-2.9); LYMPHOCYTES % 3.9 % (15.0-51.0); MEAN CORPUSCULAR HEMOGLOBIN 30.6 pg (29.0-33.0); MEAN CORPUSCULAR HGB CONC 30.7 g/dl (32.0-37.0); MEAN CORPUSCULAR VOLUME 99.7 fl (82.0-101.0); MONOCYTE # 1.2 10^3/ul (0.3-0.9); MONOCYTES % 6.1 % (0.0-11.0); NEUTROPHIL # 17.7 10^3/ul (1.6-7.5); NEUTROPHILS % 87.1 % (39.0-77.0); NUCLEATED RED BLOOD CELLS # 0.1 10^3/ul (0.0-0.0); NUCLEATED RED BLOOD CELLS% 0.4 /100WBC (0.0-0.0); POSITIVE DIFF @See below; RED BLOOD COUNT 3.01 10^6/ul (4.70-6.10); RED CELL DISTRIBUTION WIDTH 22.6 % (11.5-14.5)
[2019-04-22 08:46] LABS: WHITE BLOOD COUNT 20.3 10^3/ul (4.8-10.8)
[2019-04-22] MEDS: SILDENAFIL 20 MG TAB PO ×2 (09:00→20:34)
[2019-04-22 09:06] LABS: PLATELET COUNT 12 10^3/UL (140-415)
[2019-04-22 09:26] LABS: ANION GAP 10 (5-13); BLOOD UREA NITROGEN 35 mg/dl (7-20); CALCIUM 9.5 mg/dl (8.4-10.2); CARBON DIOXIDE 26 mmol/L (21-31); CHLORIDE 100 mmol/L (97-110); CREATININE 2.37 mg/dl (0.61-1.24); Estimated GFR 27 mL/min (>60); GLUCOSE 78 mg/dl (70-220); POTASSIUM 3.7 mmol/L (3.5-5.1); SODIUM 136 mmol/L (135-144)
[2019-04-22] MEDS: CHLORHEXIDINE GLUCONATE 15 ML UD CUP MM ×2 (09:52→20:40)
[2019-04-22] MEDS: MULTIVITAMINS THERAPEUTIC TAB PO (09:53)
[2019-04-22] MEDS: CALCIUM ACETATE 667 MG CAP PO ×3 (09:53→18:00)
[2019-04-22] MEDS: FERROUS SULFATE (EC) 325 MG TAB PO (09:53)
[2019-04-22] MEDS: AMIODARONE 200 MG TAB PO ×2 (09:53→20:40)
[2019-04-22] MEDS: ASCORBIC ACID 500 MG TAB PO (09:53)
[2019-04-22] MEDS: ESCITALOPRAM 10 MG TAB PO (09:53)
[2019-04-22] MEDS: MIDODRINE 5 MG TAB PO ×3 (09:54→18:00)
[2019-04-22] MEDS: POLYETHYLENE GLYCOL 17 GM PACKET PO (09:54)
[2019-04-22] MEDS: BALSAM PERU/CASTOR OIL 60 GM TUBE TOP ×2 (09:59→20:40)
[2019-04-22] MEDS: NYSTATIN 15 GM CR TOP ×2 (09:59→20:40)
[2019-04-22] MEDS: INSULIN GLARGINE [LANTus] (100 UNITS/ML) SYG SC (10:11)
[2019-04-22 10:58] LABS: ANISOCYTOSIS 1+ (0-0); BAND NEUTROPHILS #M 1.6 10^3/ul (0.0-0.6); BAND NEUTROPHILS % (M) 8 % (0-4); BURR CELLS 2+ (0-0); EOSINOPHILS % (M) 1 % (0-7); LYMPHOCYTES #M 0.8 10^3/ul (0.8-2.9); LYMPHOCYTES % (M) 4 % (15-51); MONOCYTE #M 0.8 10^3/ul (0.3-0.9); MONOCYTES % (M) 4 % (0-11); PLATELET ESTIMATE SIG DECREASED; POIKILOCYTOSIS 1+ (0-0); POLYCHROMASIA 2+ (0-0); SEG NEUT #M 17.2 10^3/ul (1.6-7.5); SEGMENTED NEUTROPHILS (M) % 83 % (39-77)
[2019-04-22] MEDS: SOD FERRIC GLUC COMPLX 125 MG in SOD CHLORIDE 0.9% 100 ML IVPB (13:37)
[2019-04-22 23:36] LABS: RETICULOCYTE COUNT # 0.221 X10^6 (0.020-0.110); RETICULOCYTE COUNT % 7.1 % (0.5-1.5)
[2019-04-22 23:36] LABS: RETICULOCYTE RBC 3.13
[2019-04-22 23:44] LABS: PLATELET COUNT 9 10^3/UL (140-415)
[2019-04-22 23:59] LABS: LACTATE DEHYDROGENASE 986 IU/L (313-618)
[2019-04-23 00:15] LABS: INR 1.47; PROTIME 17.9 Sec (11.9-14.9); PT RATIO 1.4
[2019-04-23 00:16] LABS: PARTIAL THROMBOPLASTIN TIME 35.5 Sec (23.0-35.0); THROMBIN TIME 16.8 SEC (13.8-19.1)
[2019-04-23 00:36] LABS: D-DIMER > 10000.00 ng/ml (<460)
[2019-04-23 01:03] LABS: ERYTHROCYTE SEDIMENTATION RATE 6 mm/Hr (0-20)
[2019-04-23 01:11] LABS: FOLATE > 20.0 ng/ml (2.8-20.0)
[2019-04-23] MEDS: ACCU-CHEK XX ×5 (02:00→21:07)
[2019-04-23] MEDS: PIPER-TAZO 2.25 GM (PMX) 50 ML IVPB (05:29)
[2019-04-23] MEDS: PANTOPRAZOLE (EC) 40 MG TAB PO (07:25)
[2019-04-23] MEDS: INSULIN ASPART [NOVOLOG] 3 ML PEN SC ×4 (07:55→21:00)
[2019-04-23] MEDS: INSULIN GLARGINE [LANTus] (100 UNITS/ML) SYG SC (08:00)
[2019-04-23 08:50] LABS: WHITE BLOOD COUNT 20.1 10^3/ul (4.8-10.8)
[2019-04-23 08:50] LABS: ABNORMAL IP MESSAGE 1; HEMATOCRIT 30.9 % (42.0-52.0); HEMOGLOBIN 9.4 g/dl (14.0-18.0); MEAN CORPUSCULAR HEMOGLOBIN 30.2 pg (29.0-33.0); MEAN CORPUSCULAR HGB CONC 30.4 g/dl (32.0-37.0); MEAN CORPUSCULAR VOLUME 99.4 fl (82.0-101.0); NUCLEATED RED BLOOD CELLS% 1.2 /100WBC (0.0-0.0); POSITIVE DIFF @See below; RED BLOOD COUNT 3.11 10^6/ul (4.70-6.10); RED CELL DISTRIBUTION WIDTH 22.8 % (11.5-14.5)
[2019-04-23] MEDS: SILDENAFIL 20 MG TAB PO ×2 (09:00→21:00)
[2019-04-23 09:04] LABS: ADD MAN DIFF? YES; PLATELET COUNT 9 10^3/UL (140-415)
[2019-04-23 09:05] LABS: ANION GAP 9 (5-13); BLOOD UREA NITROGEN 39 mg/dl (7-20); CALCIUM 9.5 mg/dl (8.4-10.2); CARBON DIOXIDE 24 mmol/L (21-31); CHLORIDE 102 mmol/L (97-110); CREATININE 2.58 mg/dl (0.61-1.24); Estimated GFR 25 mL/min (>60); GLUCOSE 75 mg/dl (70-220); POTASSIUM 4.2 mmol/L (3.5-5.1); SODIUM 135 mmol/L (135-144)
[2019-04-23] MEDS: ESCITALOPRAM 10 MG TAB PO (09:49)
[2019-04-23] MEDS: NYSTATIN 15 GM CR TOP ×2 (09:49→21:12)
[2019-04-23] MEDS: CHLORHEXIDINE GLUCONATE 15 ML UD CUP MM ×2 (09:49→21:08)
[2019-04-23] MEDS: BALSAM PERU/CASTOR OIL 60 GM TUBE TOP ×2 (09:49→21:09)
[2019-04-23] MEDS: POLYETHYLENE GLYCOL 17 GM PACKET PO (09:49)
[2019-04-23] MEDS: CALCIUM ACETATE 667 MG CAP PO ×3 (09:50→17:36)
[2019-04-23] MEDS: ASCORBIC ACID 500 MG TAB PO (09:50)
[2019-04-23] MEDS: MIDODRINE 10 MG TABLET PO ×3 (09:50→17:36)
[2019-04-23] MEDS: MULTIVITAMINS THERAPEUTIC TAB PO (09:50)
[2019-04-23] MEDS: AMIODARONE 200 MG TAB PO ×2 (09:52→21:08)
[2019-04-23] MEDS: FERROUS SULFATE (EC) 325 MG TAB PO (09:52)
[2019-04-23 09:57] LABS: ANISOCYTOSIS 2+ (0-0); BAND NEUTROPHILS #M 0.4 10^3/ul (0.0-0.6); BAND NEUTROPHILS % (M) 2 % (0-4); BURR CELLS 1+ (0-0); ERYTHROBLAST% (NRBC) (M) 1 % (0-0); LYMPHOCYTES #M 1.4 10^3/ul (0.8-2.9); LYMPHOCYTES % (M) 7 % (15-51); MONOCYTE #M 0.8 10^3/ul (0.3-0.9); MONOCYTES % (M) 4 % (0-11); PLATELET ESTIMATE SIG DECREASED; POIKILOCYTOSIS 2+ (0-0); POLYCHROMASIA 3+ (0-0); SEG NEUT #M 17.6 10^3/ul (1.6-7.5); SEGMENTED NEUTROPHILS (M) % 87 % (39-77); SMUDGE%M 2 % (0-0)
[2019-04-23 10:45] LABS: TYPE AND SCREEN 1 1
[2019-04-23] MEDS: DAPTOMYCIN 1,000 MG in SOD CHLORIDE 0.9% 100 ML IVPB (13:34)
[2019-04-23] MEDS ORDERED: AMPICILLIN 1 GM/NS (PMX) 50 ML IVPB (14:00)
[2019-04-23 17:37] LABS: WHITE BLOOD COUNT 27.4 10^3/ul (4.8-10.8)
[2019-04-23 17:37] LABS: ABNORMAL IP MESSAGE 1; HEMATOCRIT 31.1 % (42.0-52.0); HEMOGLOBIN 9.6 g/dl (14.0-18.0); MEAN CORPUSCULAR HEMOGLOBIN 30.5 pg (29.0-33.0); MEAN CORPUSCULAR HGB CONC 30.9 g/dl (32.0-37.0); MEAN CORPUSCULAR VOLUME 98.7 fl (82.0-101.0); NUCLEATED RED BLOOD CELLS% 0.9 /100WBC (0.0-0.0); POSITIVE DIFF @See below; RED BLOOD COUNT 3.15 10^6/ul (4.70-6.10); RED CELL DISTRIBUTION WIDTH 22.6 % (11.5-14.5)
[2019-04-23 17:49] LABS: ADD MAN DIFF? YES; PLATELET COUNT 22 10^3/UL (140-415)
[2019-04-23 18:37] LABS: ACANTHOCYTES 1+ (0-0); ANISOCYTOSIS 2+ (0-0); BURR CELLS 1+ (0-0); ERYTHROBLAST% (NRBC) (M) 4 % (0-0); LYMPHOCYTES #M 0.8 10^3/ul (0.8-2.9); LYMPHOCYTES % (M) 3 % (15-51); METAMYELOCYTES #M 0.5 10^3/ul (0.0-0.0); METAMYELOCYTES %M 2 % (0-0); MONOCYTE #M 0.8 10^3/ul (0.3-0.9); MONOCYTES % (M) 3 % (0-11); OVALOCYTES 1+ (0-0); PLATELET ESTIMATE SIG DECREASED; POIKILOCYTOSIS 1+ (0-0); POLYCHROMASIA 1+ (0-0); SEGMENTED NEUTROPHILS (M) % 92 % (39-77); SMUDGE%M 1 % (0-0)
[2019-04-24] MEDS: ACCU-CHEK XX ×2 (02:00→07:25)
[2019-04-24] MEDS ORDERED: LIDOCAINE 100 MG SYRINGE (07:00)
[2019-04-24] MEDS ORDERED: AMIODARONE 150 MG INJ (07:00)
[2019-04-24] MEDS ORDERED: EPINEPHrine 0.1 MG/ML SYG ×2 (07:00)
[2019-04-24] MEDS ORDERED: NA BICARBONATE 8.4% 50 ML SYG ×2 (07:00)
[2019-04-24] MEDS ORDERED: CA CHLORIDE 10% 10 ML SYRINGE (07:00)
[2019-04-24] MEDS: PANTOPRAZOLE (EC) 40 MG TAB PO (07:25)
[2019-04-24 07:43] LABS: ABNORMAL IP MESSAGE 1; HEMATOCRIT 32.9 % (42.0-52.0); HEMOGLOBIN 9.7 g/dl (14.0-18.0); MEAN CORPUSCULAR HEMOGLOBIN 29.8 pg (29.0-33.0); MEAN CORPUSCULAR HGB CONC 29.5 g/dl (32.0-37.0); MEAN CORPUSCULAR VOLUME 100.9 fl (82.0-101.0); POSITIVE DIFF @See below; RED BLOOD COUNT 3.26 10^6/ul (4.70-6.10)
[2019-04-24 07:48] LABS: ADD MAN DIFF? YES; PLATELET COUNT 13 10^3/UL (140-415)
[2019-04-24] MEDS: SILDENAFIL 20 MG TAB PO (07:54)
[2019-04-24] MEDS: CALCIUM ACETATE 667 MG CAP PO (07:55)
[2019-04-24] MEDS: INSULIN ASPART [NOVOLOG] 3 ML PEN SC (07:55)
[2019-04-24] MEDS: INSULIN GLARGINE [LANTus] (100 UNITS/ML) SYG SC (08:00)
[2019-04-24 08:04] LABS: ANION GAP 20 (5-13); BLOOD UREA NITROGEN 42 mg/dl (7-20); CALCIUM 9.8 mg/dl (8.4-10.2); CARBON DIOXIDE 16 mmol/L (21-31); CHLORIDE 101 mmol/L (97-110); Estimated GFR 21 mL/min (>60); GLUCOSE 54 mg/dl (70-220); POTASSIUM 4.3 mmol/L (3.5-5.1); SODIUM 137 mmol/L (135-144)
[2019-04-24 08:14] LABS: CREATINE KINASE < 20 IU/L (23-200)
[2019-04-24] MEDS: DEXTROSE 50% 50 ML SYRINGE IV (08:34)
[2019-04-24] MEDS: ALBUMIN HUMAN 25% 100 ML IV (08:51)
[2019-04-24] MEDS: ESCITALOPRAM 10 MG TAB PO (09:00)
[2019-04-24] MEDS: MIDODRINE 10 MG TABLET PO (09:00)
[2019-04-24] MEDS: ASCORBIC ACID 500 MG TAB PO (09:00)
[2019-04-24] MEDS: FERROUS SULFATE (EC) 325 MG TAB PO (09:00)
[2019-04-24] MEDS: BALSAM PERU/CASTOR OIL 60 GM TUBE TOP (09:00)
[2019-04-24] MEDS: NYSTATIN 15 GM CR TOP (09:00)
[2019-04-24] MEDS: POLYETHYLENE GLYCOL 17 GM PACKET PO (09:00)
[2019-04-24] MEDS: AMIODARONE 200 MG TAB PO (09:00)
[2019-04-24] MEDS: MULTIVITAMINS THERAPEUTIC TAB PO (09:00)
[2019-04-24] MEDS: CHLORHEXIDINE GLUCONATE 15 ML UD CUP MM (09:30)
[2019-04-24] MEDS: SOD CHLORIDE 0.9% 250 ML IV ×2 (10:26→10:27)
[2019-04-24 11:16] LABS: ANISOCYTOSIS 2+ (0-0); BAND NEUTROPHILS #M 1.7 10^3/ul (0.0-0.6); BAND NEUTROPHILS % (M) 7 % (0-4); BURR CELLS 3+ (0-0); ERYTHROBLAST% (NRBC) (M) 2 % (0-0); LYMPHOCYTES #M 0.5 10^3/ul (0.8-2.9); LYMPHOCYTES % (M) 2 % (15-51); MONOCYTE #M 1.2 10^3/ul (0.3-0.9); MONOCYTES % (M) 5 % (0-11); PLATELET ESTIMATE SIG DECREASED; POIKILOCYTOSIS 3+ (0-0); POLYCHROMASIA 1+ (0-0); PROMYELOCYTES #M 0.2 10^3/ul (0-0); PROMYELOCYTES % (M) 1 % (0-0); SCHISTOCYTES 1+ (0-0); SEG NEUT #M 21.7 10^3/ul (1.6-7.5); SEGMENTED NEUTROPHILS (M) % 85 % (39-77); SMUDGE%M 4 % (0-0); TEAR DROP CELLS 1+ (0-0); TOXIC GRANULATION 1+ (0-0)
[2019-04-24] MEDS ORDERED: NORepinephrine 8MG/250 ML (PMX 250 ML IV (12:00)
[2019-04-24] MEDS ORDERED: DEXTROSE 50% 50 ML SYRINGE IV ×2 (12:30)
[2019-04-24] MEDS ORDERED: GLUCOSE GEL 15 GRAM TUBE BUCCAL (12:30)
[2019-04-24] MEDS ORDERED: GLUCAGON 1 MG INJ IM (12:30)
[2019-04-24] MEDS ORDERED: GLUCOSE GEL 15 GRAM TUBE PO ×2 (12:30)
[2019-04-24] MEDS ORDERED: PHENYLephrine 80 MG in DEXTROSE 5% 242 ML IV (12:30)
[2019-04-24] MEDS ORDERED: AMIKACIN IV PER PHARMACY XX (12:30)
[2019-04-24] MEDS ORDERED: INSULIN ASPART [NOVOLOG] 3 ML PEN SC (13:00)
[2019-04-24] MEDS ORDERED: AMPICILLIN 1 GM/NS (PMX) 50 ML IVPB (14:00)
[2019-04-24] MEDS ORDERED: VANCOMYCIN IV PER PHARMACY XX (14:00)
[2019-04-25] MEDS ORDERED: PANTOPRAZOLE 40 MG INJ IV (06:00)
[2019-04-25 14:27] LABS: PROTEIN, TOTAL 5.3 g/dL (6.1-8.1)
[2019-04-26 00:01] LABS: HEPARIN INDUCED PLATELET AB NEGATIVE (NEGATIVE)
[2019-04-26 14:27] LABS: HAPTOGLOBIN <8 mg/dL (43-212)
[2019-04-26 16:51] LABS: ALPHA-1-GLOBULINS 0.5 g/dL (0.2-0.3); ALPHA-2-GLOBULINS 0.5 g/dL (0.5-0.9); BETA 2 GLOBULINS 0.3 g/dL (0.2-0.5); BETA GLOBULINS 0.2 g/dL (0.4-0.6); GAMMA GLOBULINS 0.9 g/dL (0.8-1.7)
== END 2019-04-24 12:45 | disposition expired | DRG 870 ==
LOC: ICU 20:13 → TEL 04-20 02:21 → ICU 04-24 12:01
PROVIDERS: Internal Medicine
PROC: 5A1955Z Respiratory Ventilation, Greater than 96 Consecutive Hours (ICD-10-PCS; principal; 2019-04-17)
PROC: 30233N1 Transfusion of Nonautologous Red Blood Cells into Peripheral Vein, Percutaneous Approach (ICD-10-PCS; 2019-04-18)
PROC: 30233R1 Transfusion of Nonautologous Platelets into Peripheral Vein, Percutaneous Approach (ICD-10-PCS; 2019-04-23)
DX: A41.9 Sepsis, unspecified organism (principal); J96.21 Acute and chronic respiratory failure with hypoxia; J69.0 Pneumonitis due to inhalation of food and vomit; N18.6 End stage renal disease; J96.22 Acute and chronic respiratory failure with hypercapnia; I13.2 Hypertensive heart and chronic kidney disease with heart failure and with stage 5 chronic kidney disease, or end stage renal disease; I50.32 Chronic diastolic (congestive) heart failure; Z68.41 Body mass index [BMI] 40.0-44.9, adult; I48.91 Unspecified atrial fibrillation; E11.22 Type 2 diabetes mellitus with diabetic chronic kidney disease; E66.01 Morbid (severe) obesity due to excess calories; Z99.2 Dependence on renal dialysis; Z79.4 Long term (current) use of insulin; Z87.891 Personal history of nicotine dependence
CPT/HCPCS: 36430; 36600; 71045; 76705; 80048; 80076; 82550; 82607; 82746; 82803; 82962; 83010; 83036; 83605; 83615; 83735; 84100; 84145; 84155; 84165; 84484; 85025; 85045; 85049; 85362; 85378; 85384; 85610; 85651; 85670; 85730; 86022; 86850; 86900; 86901; 86920; 86945; 87040-91; 87081; 87340; 90935; 92523; 92526; 92610; 92950; 93005; 94002; 94003